=== PATIENT | male | born 1935 | race Caucasian/White ===

== ENCOUNTER 2016-02-17 00:16 | Emergency (ER) | payer OTHER ==
--- NOTE | 2016-02-17 06:01 | ED ORDER SUMMARY ---
..... Patient: BRIGID MICHAELS OrderSheet [facility] VisitID: [id number] [address] [place] [address] 81y, M Registration Date/Time: 02/17/2016 ORDER SHEET Weight: 88 kg (measured) Allergies: Penicillins, Sulfa Antibiotics GENERAL ORDERS: Culture, Stool Urgent (:02/17/2016 RCollier R.N. per protocol) (Ack 1:16 AMcQuoid ER Tech1) (1:16 AMcQuoid ER Tech1) Stool WBC Urgent (:02/17/2016 RCollier R.N. per protocol) (Ack 1:16 AMcQuoid ER Tech1) (1:16 AMcQuoid ER Tech1) Stool for C. Difficile Urgent (:02/17/2016 RCollier R.N. per protocol) (Ack 1:16 AMcQuoid ER Tech1) (1:16 AMcQuoid ER Tech1) CBC w Diff Urgent (:02/17/2016 Melvin Ngo) (Ack 1:25 AMcQuoid ER Tech1) (1:50 Jenniferna) CMP Urgent (:02/17/2016 Melvin Ngo) (Ack 1:25 AMcQuoid ER Tech1) (1:50 Marilynekimana) Amylase Urgent (:02/17/2016 Melvin Ngo) (Ack 1:25 AMcQuoid ER Tech1) (1:57 AMcQuoid ER Tech1) Lipase Urgent (:02/17/2016 Melvin Ngo) (Ack 1:25 AMcQuoid ER Tech1) (1:57 AMcQuoid ER Tech1) MEDICATION ORDERS: IV FLUIDS: IV NS : initial bolus none -, then 1000 mL/hr for X1 (NOW) (01:22 02/17/2016 Melvin Ngo) (1:30 RCollier R.N.) IV NS : initial bolus none -, then 1000 mL/hr for X1 (NOW) (04:20 02/17/2016 Melvin Ngo) (Ack 4:32 RCollier R.N.) (4:51 RCollier R.N.) ORDER SHEET NOTES: [Electronically signed by Babita Banuelos R.N. (06:02/17/2016)] [Electronically signed by Morales Kay Dr. (10:50 02/17/2016)] [Electronically locked/signed by Babita Banuelos R.N. (06:02/17/2016)]
--- NOTE | 2016-02-17 06:01 | ED CLINICAL REPORT ---
Clinical Report - Physicians/Mid Levels [facility] [address] [place] [address] 02/17/2016 0:16 Patient: BRIGID MICHAELS Time Seen: 00:48; initial patient contact. Arrived- By private vehicle. Historian- patient. HISTORY OF PRESENT ILLNESS Chief Complaint: DIARRHEA. This started about 5 days ago and is still present (persistent). No recent travel. No nausea, vomiting, black stools, bloody stools or abdominal pain. No constipation, flank pain, history of possible bad food exposure, known contact with a sick individual or change in routine. The patient has had diarrhea. Has not recently been camping or on antibiotics. The illness is described as moderate. Similar symptoms previously: None. Recent medical care: Not recently seen/assessed. REVIEW OF SYSTEMS No fever, muscle aches or difficulty with urination. All systems otherwise negative, except as recorded above. PAST HISTORY Fecal Impaction. Constipation. Diabetes Mellitus. Hypertension. Hypercholesterolemia. SURGERIES: Polyp removal from vocal cords. Medications: A statin. Asa 81 mg daily. Humalog before each meal. Lantis insulin 50-60units at hs sliding scale. Lisinopril Oral 20 mg, daily. Allergies: Penicillins. Sulfa Antibiotics. SOCIAL HISTORY Current every day smoker. No alcohol use or drug use. ADDITIONAL NOTES The nursing notes have been reviewed with agreement regarding the chief complaint, PMH and patient medications and allergies. PHYSICAL EXAM Vital Signs: 02/17/2016 00:20 BP: 130/57. HR: 115. RR: 16. O2 saturation: 99%. Temp: 98 F. Pain level now: 0/10. Have been reviewed. Hypotensive. Tachycardic. Respiratory rate normal. Temperature normal. Oxygen saturation normal. Appearance: Alert. Oriented X3. No acute distress. Eyes: Eyes normal inspection. No scleral icterus. ENT: Dry mucous membranes present. CVS: Tachycardia. Heart sounds normal. Rhythm normal. Respiratory: No respiratory distress. Breath sounds normal. Abdomen: Soft and nontender. Bowel sounds normal. No organomegaly. No mass. No distention. Skin: Skin warm and dry. Normal skin color. No rash. Extremities: No lower extremity edema. Neuro: Oriented X 3. No motor deficit. LABS, X-RAYS, AND EKG Laboratory Tests: CBC w Diff: (KIRA: 02/17/2016 01:36) ( [facility] 02/17/2016 03:32) Final results Test Result Flag Units (Reference) WHITE BLOOD COUNT 10.1 K/uL (4.5-11.5) RED BLOOD COUNT 3.88 L M/uL (4.50-5.90) HEMOGLOBIN 11.9 L gm/dL (13.5-17.5) HEMATOCRIT 35.9 L % (41.0-53.0) MEAN CELL VOLUME 92 fL (80-100) MEAN CORPUSCULAR HGB 31 pg (26-34) MEAN CORPUSCULAR HGB CONC 33 g/dL (31-37) RED CELL DISTRIBUTION WIDTH 15.3 H % (11.6-14.8) PLATELET COUNT 159 K/uL (150-400) POLY % 67 % (50-75) BAND % 0 % (0-8) LYMPH 15 L % (25-40) MONO 16 H % (3-14) EOSINOPHIL % 2 % (0-4) BASOPHIL % 0 % (0-2) METAMYELOCYTE % 0 % (0-1) MYELOCYTE 0 % (0-1) OTHER CELL TYPE 0 CMP: (KIRA: 02/17/2016 01:36) ( [facility] 02/17/2016 02:06) Final results Test Result Flag Units (Reference) GLUCOSE 261 H mg/dL (70-110) BUN 28 H mg/dL (7-18) CREATININE 1.6 H mg/dL (0.6-1.3) Estimated GFR 44.54 mL/min Estimated GFR- 53.98 mL/min Note: Persistent reduction over 3 months in eGFR<60 mL/min/1.73 m2 defines CKD. Patients with eGFR values>=60 mL/min/1.73 m2 may also have CKD if evidence ofpersistent proteinuria. Additional information may be foundat www.kidney.org. SODIUM 140 mmol/L (136-145) POTASSIUM 3.9 mmol/L (3.5-5.1) CHLORIDE 108 H mmol/L (98-107) CARBON DIOXIDE 21 mmol/L (21-32) CALCIUM 7.3 L mg/dL (8.5-10.1) TOTAL PROTEIN 5.9 L g/dL (6.4-8.2) ALBUMIN 2.8 L g/dL (3.3-5.0) BILIRUBIN, TOTAL 0.2 mg/dL (0.0-1.0) ALKALINE PHOSPHATASE 54 U/L (46-116) AST (SGOT) 13 L U/L (15-37) ALT (SGPT) 18 U/L (12-78) LIPASE 164 U/L (73-393) AMYLASE 44 U/L (25-115) Stool WBC: (KIRA: 02/17/2016 01:05) ( [facility] 02/17/2016 03:43) Final results Test Result Flag Units (Reference) CDT SOURCE STOOL C-DIFFICILE TOXIN A/B CDT RESULT:: NEGATIVE FECAL LEUKOCYTES DATE: 02/17/16 FECAL LEUKOCYTES: NONE SEEN . PROGRESS AND PROCEDURES Course of Care: 02/17/2016 05:54 BP: 110/60. HR: 108. Evaluation after repeat exam and IV fluids. Vital Signs: have been reviewed. Blood pressure normal. Tachycardic. Physical exam findings are improved. Symptoms much better. Disposition: Discharged home in good and improved condition. Condition: good. CLINICAL IMPRESSION Diarrhea Moderate dehydration INSTRUCTIONS Drink plenty of fluids. Your Current Medications: CONTINUE TAKING THE FOLLOWING MEDICATIONS: A statin*. Asa 81 mg daily*. Humalog before each meal*. Lantis insulin 50-60units at hs * : sliding scale. Lisinopril Oral : 20 mg daily. Follow-up: Follow up with your doctor in about two days. Call for an appointment. Blood pressure screening was not performed during this visit because the patient has an active diagnosis of hypertension. (Electronically signed by Morales Kay Dr. 02/17/2016 10:50) Addenda for BRIGID MICHAELS VisitID: [id number] Date: 02/17/2016 02/17/2016 6:30 Started bag #4 1000 mL IV Fluids IV NS (Saline); at 1000 mL/hr over 1 hour(s) via site #1 via IV pump. Allergies verified and confirmed 5 rights. IV patency established. IV site checked: no pain, redness, or swelling. IV flushed thoroughly pre- and post-medication administration. IV Fluids IV NS Discontinued: bag #4 completed. Total amount infused: 1000 mL. IV patency established. IV site checked: no pain, redness, or swelling. IV flushed thoroughly. (Electronically signed by Babita Banuelos R.N. - 02/17/2016 6:30)
--- NOTE | 2016-02-17 06:01 | ED NURSING NOTES ---
Clinical Report - Nurses [facility] [address] [place] [address] 02/17/2016 0:16 Patient: BRIGID MICHAELS TRIAGE Triage time 00:20. Chief Complaint: DIARRHEA and (weakness). Alert. No acute distress. --00:25 Babita Banuelos R.N. 00:20 02/17/16. BP: 130/57. HR: 115. RR: 16 (regular and unlabored). O2 saturation: 99% on room air. Temp: 98 F (oral). Pain level now: 0/10. --00: Babita Banuelos R.N. Weight: 88 kg measured. Height/Length: 68 inches Per Patient. BMI: 29.5. --00:22 Babita Banuelos R.N. Medications A statin. Asa 81 mg daily. Humalog before each meal. Lantis insulin 50-60units at hs sliding scale. Lisinopril Oral 20 mg, daily. --00: Babita Banuelos R.N. Allergies Penicillins. Sulfa Antibiotics. --00: Babita Banuelos R.N. History Primary physician (Meggan). Onset. (about 5 days ago). No nausea, vomiting or abdominal pain. 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 --00: Babita Banuelos R.N. PROBLEMS: Fecal Impaction. Constipation. Diabetes Mellitus. Hypertension. Hypercholesterolemia. --00: Babita Banuelos R.N. ADDITIONAL SURGERIES: Polyp removal from vocal cords. --00:21 Babita Banuelos R.N. PHYSICAL ASSESSMENT To room via stretcher. GENERAL / NEURO / PSYCH: Alert. Oriented X 4. Appears in no acute distress. HEENT: Mucous membranes are pink. RESPIRATORY: Respirations not labored. CVS: Capillary refill less than 2 seconds. SKIN: Skin is warm and dry. --00:25 Babita Banuelos R.N. NURSING PROGRESS NOTES Two patient identifiers checked. Call light placed in reach. Side rails up x 1. Bed placed in lowest position. Brakes of bed on. --00:26 Babita Banuelos R.N. Patient ready for evaluation- chart flagged. --00:26 Babita Banuelos R.N. 00:28 02/17/2016 Site #1 started prior to arrival by EMS via IV in the left antecubital space with an 20g angiocath, with aseptic technique and good blood return; one attempt (NS 1000ml bag #2 infusing upon arrival, approx 500ml infused at time of arrival. rate at approx 500ml/hr). --00: Babita Banuelos R.N. monitor tech, pulse oximeter and NIBP monitor placed on patient; monitor alarms on. --00:28 Babita Banuelos R.N. pt ambulates to restroom and back to bed with assistance from . --01:08 Babita Banuelos R.N. Patient ID band checked for patient name and birthdate: family confirmed. Stool specimen sent. Labeled in the presence of the patient (liquid, brown specimine sent.). --01:09 Babita Banuelos R.N. 01:15 02/17/16. BP: 92/49. HR: 118. RR: 16. O2 saturation: 100%. --01:17 Babita Banuelos R.N. 01:30 02/17/2016 Started bag #3 1000 mL IV Fluids IV NS (Saline); at 1000 mL/hr over 1 hour(s) via site #1 via IV pump. Allergies verified and confirmed 5 rights. IV patency established. IV site checked: no pain, redness, or swelling. IV flushed thoroughly pre- and post-medication administration. --01:30 Babita Banuelos R.N. ( Stop time for IV NS bag #2 (started SUPERVISOR CELL EFFICIENCY) is 0110). --01:31 Babita Banuelos R.N. Patient ID band checked for patient name and birthdate: patient confirmed. Blood samples drawn from the right antecubital space with 23g butterfly by tech per protocol ; labeled in presence of the patient and sent to lab: osiel set. --01:55 Grecia Molina 03:40 02/17/16. BP: 96/45. HR: 117. RR: 16. O2 saturation: 98% on room air. --03:41 Babita Banuelos R.N. 02:34 02/17/2016 IV Fluids IV NS Discontinued: bag #3. Total amount infused: 1000 mL. IV patency established. IV site checked: no pain, redness, or swelling. IV flushed thoroughly. --04:34 Babita Banuelos R.N. 04:35- pt ambulates to restroom. --04:35 Babita Banuelos R.N. 04:50 02/17/2016 Started bag #4 1000 mL IV Fluids IV NS (Saline); at 1000 mL/hr over 1 hour(s) via site #1 via IV pump. Allergies verified and confirmed 5 rights. IV patency established. IV site checked: no pain, redness, or swelling. IV flushed thoroughly pre- and post-medication administration. --04:51 Babita Banuelos R.N. 04:51 02/17/16. BP: 87/46. HR: 112. RR: 15. O2 saturation: 98% on room air. Pain level now: 0/10. --04:52 Babita Banuelos R.N. DISPOSITION / DISCHARGE Condition at departure: improved and stable. No learning barriers present. Discharge instructions provided and reviewed with the patient and spouse. Patient and spouse verbalized understanding. Written instructions provided in Indonesian. The patient was discharged home and accompanied by spouse. He left the Emergency Department ambulatory and via private vehicle. Spouse driving. --06:20 Babita Banuelos R.N. 06:19 02/17/16. BP: 100/60. HR: 100. RR: 15. O2 saturation: 99% on room air. Temp: deferred. Pain level now: 0/10. --06:20 Babita Banuelos R.N. 06:20 02/17/2016 Site #1 removed upon discharge. Catheter intact. Manual pressure and bandage applied. --06:20 Babita Banuelos R.N. Locked/Released at 02/17/2016 6:21 by Babita Banuelos R.N.
--- NOTE | 2016-02-17 06:01 | ED NURSING NOTES ---
Clinical Report - Nurses [facility] [address] [place] [address] 02/17/2016 0:16 Patient: BRIGID MICHAELS TRIAGE Triage time 00:20. Chief Complaint: DIARRHEA and (weakness). Alert. No acute distress. --00:25 Babita Banuelos R.N. 00:20 02/17/16. BP: 130/57. HR: 115. RR: 16 (regular and unlabored). O2 saturation: 99% on room air. Temp: 98 F (oral). Pain level now: 0/10. --00: Babita Banuelos R.N. Weight: 88 kg measured. Height/Length: 68 inches Per Patient. BMI: 29.5. --00:22 Babita Banuelos R.N. Medications A statin. Asa 81 mg daily. Humalog before each meal. Lantis insulin 50-60units at hs sliding scale. Lisinopril Oral 20 mg, daily. --00: Babita Banuelos R.N. Allergies Penicillins. Sulfa Antibiotics. --00: Babita Banuelos R.N. History Primary physician (Meggan). Onset. (about 5 days ago). No nausea, vomiting or abdominal pain. 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 --00: Babiat Banuelos R.N. PROBLEMS: Fecal Impaction. Constipation. Diabetes Mellitus. Hypertension. Hypercholesterolemia. --00: Babita Banuelos R.N. ADDITIONAL SURGERIES: Polyp removal from vocal cords. --00:21 Babita Banuelos R.N. PHYSICAL ASSESSMENT To room via stretcher. GENERAL / NEURO / PSYCH: Alert. Oriented X 4. Appears in no acute distress. HEENT: Mucous membranes are pink. RESPIRATORY: Respirations not labored. CVS: Capillary refill less than 2 seconds. SKIN: Skin is warm and dry. --00:25 Babita Banuelos R.N. NURSING PROGRESS NOTES Two patient identifiers checked. Call light placed in reach. Side rails up x 1. Bed placed in lowest position. Brakes of bed on. --00:26 Babita Banuelos R.N. Patient ready for evaluation- chart flagged. --00:26 Babita Banuelos R.N. 00:28 02/17/2016 Site #1 started prior to arrival by EMS via IV in the left antecubital space with an 20g angiocath, with aseptic technique and good blood return; one attempt (NS 1000ml bag #2 infusing upon arrival, approx 500ml infused at time of arrival. rate at approx 500ml/hr). --00: Babita Banuelos R.N. fire suppression captain, pulse oximeter and NIBP monitor placed on patient; monitor alarms on. --00:28 Babita Banuelos R.N. pt ambulates to restroom and back to bed with assistance from . --01:08 Babita Banuelos R.N. Patient ID band checked for patient name and birthdate: family confirmed. Stool specimen sent. Labeled in the presence of the patient (liquid, brown specimine sent.). --01:09 Babita Banuelos R.N. 01:15 02/17/16. BP: 92/49. HR: 118. RR: 16. O2 saturation: 100%. --01:17 Babita Banuelos R.N. 01:30 02/17/2016 Started bag #3 1000 mL IV Fluids IV NS (Saline); at 1000 mL/hr over 1 hour(s) via site #1 via IV pump. Allergies verified and confirmed 5 rights. IV patency established. IV site checked: no pain, redness, or swelling. IV flushed thoroughly pre- and post-medication administration. --01:30 Babita Banuelos R.N. 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 --01:31 Babita Banuelos R.N. Patient ID band checked for patient name and birthdate: patient confirmed. Blood samples drawn from the right antecubital space with 23g butterfly by tech per protocol ; labeled in presence of the patient and sent to lab: osiel set. --01:55 Grecia Molina 03:40 02/17/16. BP: 96/45. HR: 117. RR: 16. O2 saturation: 98% on room air. --03:41 Babita Banuelos R.N. 02:34 02/17/2016 IV Fluids IV NS Discontinued: bag #3. Total amount infused: 1000 mL. IV patency established. IV site checked: no pain, redness, or swelling. IV flushed thoroughly. --04:34 Babita Banuelos R.N. 04:35- pt ambulates to restroom. --04:35 Babita Banuelos R.N. 04:50 02/17/2016 Started bag #4 1000 mL IV Fluids IV NS (Saline); at 1000 mL/hr over 1 hour(s) via site #1 via IV pump. Allergies verified and confirmed 5 rights. IV patency established. IV site checked: no pain, redness, or swelling. IV flushed thoroughly pre- and post-medication administration. --04:51 Babita Banuelos R.N. 04:51 02/17/16. BP: 87/46. HR: 112. RR: 15. O2 saturation: 98% on room air. Pain level now: 0/10. --04:52 Babita Banuelos R.N. DISPOSITION / DISCHARGE Condition at departure: improved and stable. No learning barriers present. Discharge instructions provided and reviewed with the patient and spouse. Patient and spouse verbalized understanding. Written instructions provided in Lithuanian. The patient was discharged home and accompanied by spouse. He left the Emergency Department ambulatory and via private vehicle. Spouse driving. --06:20 Babita Banuelos R.N. 06:19 02/17/16. BP: 100/60. HR: 100. RR: 15. O2 saturation: 99% on room air. Temp: deferred. Pain level now: 0/10. --06:20 Babita Banuelos R.N. 06:20 02/17/2016 Site #1 removed upon discharge. Catheter intact. Manual pressure and bandage applied. --06:20 Babita Banuelos R.N. Locked/Released at 02/17/2016 6:21 by Babita Banuelos R.N.
--- NOTE | 2016-02-17 06:01 | ED ORDER SUMMARY ---
..... Patient: BRIGID MICHAELS OrderSheet [facility] VisitID: [id number] [address] [place] [address] 81y, M Registration Date/Time: 02/17/2016 ORDER SHEET Weight: 88 kg (measured) Allergies: Penicillins, Sulfa Antibiotics GENERAL ORDERS: Culture, Stool Urgent (:02/17/2016 RCollier R.N. per protocol) (Ack 1:16 AMcQuoid ER Tech1) (1:16 AMcQuoid ER Tech1) Stool WBC Urgent (:02/17/2016 RCollier R.N. per protocol) (Ack 1:16 AMcQuoid ER Tech1) (1:16 AMcQuoid ER Tech1) Stool for C. Difficile Urgent (:02/17/2016 RCollier R.N. per protocol) (Ack 1:16 AMcQuoid ER Tech1) (1:16 AMcQuoid ER Tech1) CBC w Diff Urgent (:02/17/2016 Melvin Ngo) (Ack 1:25 AMcQuoid ER Tech1) (1:50 Jenniferna) CMP Urgent (:02/17/2016 Melvin Ngo) (Ack 1:25 AMcQuoid ER Tech1) (1:50 Marilynekimana) Amylase Urgent (:02/17/2016 Melvin Ngo) (Ack 1:25 AMcQuoid ER Tech1) (1:57 AMcQuoid ER Tech1) Lipase Urgent (:02/17/2016 Melvin Ngo) (Ack 1:25 AMcQuoid ER Tech1) (1:57 AMcQuoid ER Tech1) MEDICATION ORDERS: IV FLUIDS: IV NS : initial bolus none -, then 1000 mL/hr for X1 (NOW) (01:22 02/17/2016 Melvin Ngo) (1:30 RCollier R.N.) IV NS : initial bolus none -, then 1000 mL/hr for X1 (NOW) (04:20 02/17/2016 Melvin Ngo) (Ack 4:32 RCollier R.N.) (4:51 RCollier R.N.) ORDER SHEET NOTES: [Electronically signed by Babita Banuelos R.N. (06:02/17/2016)] [Electronically signed by Morales Kay Dr. (10:50 02/17/2016)] [Electronically locked/signed by Babita Banuelos R.N. (06:02/17/2016)]
--- NOTE | 2016-02-17 06:01 | ED CLINICAL REPORT ---
Clinical Report - Physicians/Mid Levels [facility] [address] [address] 02/17/2016 0:16 Patient: BRIGID MICHAELS Time Seen: 00:48; initial patient contact. Arrived- By private vehicle. Historian- patient. HISTORY OF PRESENT ILLNESS Chief Complaint: DIARRHEA. This started about 5 days ago and is still present (persistent). No recent travel. No nausea, vomiting, black stools, bloody stools or abdominal pain. No constipation, flank pain, history of possible bad food exposure, known contact with a sick individual or change in routine. The patient has had diarrhea. Has not recently been camping or on antibiotics. The illness is described as moderate. Similar symptoms previously: None. Recent medical care: Not recently seen/assessed. REVIEW OF SYSTEMS No fever, muscle aches or difficulty with urination. All systems otherwise negative, except as recorded above. PAST HISTORY Fecal Impaction. Constipation. Diabetes Mellitus. Hypertension. Hypercholesterolemia. SURGERIES: Polyp removal from vocal cords. Medications: A statin. Asa 81 mg daily. Humalog before each meal. Lantis insulin 50-60units at hs sliding scale. Lisinopril Oral 20 mg, daily. Allergies: Penicillins. Sulfa Antibiotics. SOCIAL HISTORY Current every day smoker. No alcohol use or drug use. ADDITIONAL NOTES The nursing notes have been reviewed with agreement regarding the chief complaint, PMH and patient medications and allergies. PHYSICAL EXAM Vital Signs: 02/17/2016 00:20 BP: 130/57. HR: 115. RR: 16. O2 saturation: 99%. Temp: 98 F. Pain level now: 0/10. Have been reviewed. Hypotensive. Tachycardic. Respiratory rate normal. Temperature normal. Oxygen saturation normal. Appearance: Alert. Oriented X3. No acute distress. Eyes: Eyes normal inspection. No scleral icterus. ENT: Dry mucous membranes present. CVS: Tachycardia. Heart sounds normal. Rhythm normal. Respiratory: No respiratory distress. Breath sounds normal. Abdomen: Soft and nontender. Bowel sounds normal. No organomegaly. No mass. No distention. Skin: Skin warm and dry. Normal skin color. No rash. Extremities: No lower extremity edema. Neuro: Oriented X 3. No motor deficit. LABS, X-RAYS, AND EKG Laboratory Tests: CBC w Diff: (KIRA: 02/17/2016 01:36) ( [facility] 02/17/2016 03:32) Final results Test Result Flag Units (Reference) WHITE BLOOD COUNT 10.1 K/uL (4.5-11.5) RED BLOOD COUNT 3.88 L M/uL (4.50-5.90) HEMOGLOBIN 11.9 L gm/dL (13.5-17.5) HEMATOCRIT 35.9 L % (41.0-53.0) MEAN CELL VOLUME 92 fL (80-100) MEAN CORPUSCULAR HGB 31 pg (26-34) MEAN CORPUSCULAR HGB CONC 33 g/dL (31-37) RED CELL DISTRIBUTION WIDTH 15.3 H % (11.6-14.8) PLATELET COUNT 159 K/uL (150-400) POLY % 67 % (50-75) BAND % 0 % (0-8) LYMPH 15 L % (25-40) MONO 16 H % (3-14) EOSINOPHIL % 2 % (0-4) BASOPHIL % 0 % (0-2) METAMYELOCYTE % 0 % (0-1) MYELOCYTE 0 % (0-1) OTHER CELL TYPE 0 CMP: (KIRA: 02/17/2016 01:36) ( [facility] [place] 02/17/[place] 02:06) Final results Test Result Flag Units (Reference) GLUCOSE 261 H mg/dL (70-110) BUN 28 H mg/dL (7-18) CREATININE 1.6 H mg/dL (0.6-1.3) Estimated GFR 44.54 mL/min Estimated GFR- 53.98 mL/min Note: Persistent reduction over 3 months in eGFR<60 mL/min/1.73 m2 defines CKD. Patients with eGFR values>=60 mL/min/1.73 m2 may also have CKD if evidence ofpersistent proteinuria. Additional information may be foundat www.kidney.org. SODIUM 140 mmol/L (136-145) POTASSIUM 3.9 mmol/L (3.5-5.1) CHLORIDE 108 H mmol/L (98-107) CARBON DIOXIDE 21 mmol/L (21-32) CALCIUM 7.3 L mg/dL (8.5-10.1) TOTAL PROTEIN 5.9 L g/dL (6.4-8.2) ALBUMIN 2.8 L g/dL (3.3-5.0) BILIRUBIN, TOTAL 0.2 mg/dL (0.0-1.0) ALKALINE PHOSPHATASE 54 U/L (46-116) AST (SGOT) 13 L U/L (15-37) ALT (SGPT) 18 U/L (12-78) LIPASE 164 U/L (73-393) AMYLASE 44 U/L (25-115) Stool WBC: (KIRA: 02/17/2016 01:05) ( MsgRcvd 02/17/2016 03:43) Final results Test Result Flag Units (Reference) CDT SOURCE STOOL C-DIFFICILE TOXIN A/B CDT RESULT:: NEGATIVE FECAL LEUKOCYTES DATE: 02/17/16 FECAL LEUKOCYTES: NONE SEEN . PROGRESS AND PROCEDURES Course of Care: 02/17/2016 05:54 BP: 110/60. HR: 108. Evaluation after repeat exam and IV fluids. Vital Signs: have been reviewed. Blood pressure normal. Tachycardic. Physical exam findings are improved. Symptoms much better. Disposition: Discharged home in good and improved condition. Condition: good. CLINICAL IMPRESSION Diarrhea Moderate dehydration INSTRUCTIONS Drink plenty of fluids. Your Current Medications: CONTINUE TAKING THE FOLLOWING MEDICATIONS: A statin*. Asa 81 mg daily*. Humalog before each meal*. Lantis insulin 50-60units at hs * : sliding scale. Lisinopril Oral : 20 mg daily. Follow-up: Follow up with your doctor in about two days. Call for an appointment. Blood pressure screening was not performed during this visit because the patient has an active diagnosis of hypertension. (Electronically signed by Morales Kay Dr. 02/17/2016 10:50) Addenda for BRIGID MICHAELS VisitID: [id number] Date: 02/17/2016 02/17/2016 6:30 Started bag #4 1000 mL IV Fluids IV NS (Saline); at 1000 mL/hr over 1 hour(s) via site #1 via IV pump. Allergies verified and confirmed 5 rights. IV patency established. IV site checked: no pain, redness, or swelling. IV flushed thoroughly pre- and post-medication administration. IV Fluids IV NS Discontinued: bag #4 completed. Total amount infused: 1000 mL. IV patency established. IV site checked: no pain, redness, or swelling. IV flushed thoroughly. (Electronically signed by Babita Banuelos R.N. - 02/17/2016 6:30)
--- NOTE | 2016-02-17 10:50 | ED MED RECONCILIATION SUMMARY ---
Patient: BRIGID MICHAELS Medication Reconciliation Report [facility] VisitID: [id number] [address] [place] [address] 81y, M Registration Date/Time: 02/17/2016 Weight: 88 kg Height/Length: 68 in. BMI: 29.5 ALLERGIES: Penicillins, Sulfa Antibiotics The patient's Home Medications are listed below: CONTINUE TAKING THE FOLLOWING MEDICATIONS: A statin Asa 81 mg daily Humalog before each meal Lantis insulin 50-60units at hs sliding scale Lisinopril Oral 20 mg, daily The source(s) of the original Home Medication information: Not obtained. The following Medications were given to the patient in the Emergency Department: IV NS IV Fluids bolus 0, then 1000 mL/hr, administered: 02/17/2016 1:30:00 AM IV NS IV Fluids bolus 0, then 1000 mL/hr, administered: 02/17/2016 4:50:00 AM The following Medications were prescribed to the patient: None.
--- NOTE | 2016-02-17 10:50 | ED MAR SUMMARY ---
..... Medication Administration Record [facility] [address] [place] [address] Patient: BRIGID MICHAELS Visit ID: [id number] 81y, M Weight: 88.0 kg Height/Length: 68 in BMI: 29.5 ALLERGIES: Penicillins, Sulfa Antibiotics Start 01:30 02/17/2016 Babita Banuelos RCharity, Stop 02:34 02/17/2016 Babita Banuelos R.N. Medication Administered: IV NS (SALINE), Dose: IV Fluids over 1 hour(s), Rate: 1000 mL/hr, Dispensed: 1000 mL bag, Site: #1 left AC. Medication Ordered: IV NS : initial bolus none -, then 1000 mL/hr for X1 (NOW). Start 04:50 02/17/2016 Babita Banuelos R.N., Stop 05:50 02/17/2016 Babita Banuelos RCatalinaN. Medication Administered: IV NS (SALINE), Dose: IV Fluids over 1 hour(s), Rate: 1000 mL/hr, Dispensed: 1000 mL bag, Site: #1 left AC. Medication Ordered: IV NS : initial bolus none -, then 1000 mL/hr for X1 (NOW).
--- NOTE | 2016-02-17 10:50 | ED MAR SUMMARY ---
..... Medication Administration Record [facility] [address] [place] [address] Patient: BRIGID MICHAELS Visit ID: [id number] 81y, M Weight: 88.0 kg Height/Length: 68 in BMI: 29.5 ALLERGIES: Penicillins, Sulfa Antibiotics Start 01:30 02/17/2016 Babita Banuelos RCharity, Stop 02:34 02/17/2016 Babita Banuelos R.N. Medication Administered: IV NS (SALINE), Dose: IV Fluids over 1 hour(s), Rate: 1000 mL/hr, Dispensed: 1000 mL bag, Site: #1 left AC. Medication Ordered: IV NS : initial bolus none -, then 1000 mL/hr for X1 (NOW). Start 04:50 02/17/2016 Bbaita Banuelos R.N., Stop 05:50 02/17/2016 Babita Banuelos RCatalinaN. Medication Administered: IV NS (SALINE), Dose: IV Fluids over 1 hour(s), Rate: 1000 mL/hr, Dispensed: 1000 mL bag, Site: #1 left AC. Medication Ordered: IV NS : initial bolus none -, then 1000 mL/hr for X1 (NOW).
--- NOTE | 2016-02-17 10:50 | ED DISCHARGE INSTRUCTIONS ---
Patient: BRIGID MICHAELS General Instructions [facility] VisitID: [id number] [place] [address] 81y, M Registration Date/Time: 02/17/2016 Diarrhea Moderate dehydration INSTRUCTIONS Drink plenty of fluids. Your Current Medications: CONTINUE TAKING THE FOLLOWING MEDICATIONS: A statin*. Asa 81 mg daily*. Humalog before each meal*. Lantis insulin 50-60units at hs * : sliding scale. Lisinopril Oral : 20 mg daily. Follow-up: Follow up with your doctor in about two days. Call for an appointment. Blood pressure screening was not performed during this visit because the patient has an active diagnosis of hypertension. ADDITIONAL INFORMATION Diarrhea, Uncertain Cause (Adult, Report Pending) Diarrhea has several possible causes. Commonstomach fluis caused by a virus. Food poisoning, bacteria or parasites are other causes for diarrhea. Only diarrhea caused by bacteria or parasites requires treatment with an antibiotic. Diarrhea from a virus or food poisoning improves with simple home treatment. A stool sample is needed to make the diagnosis of an infection with bacteria or parasites. Up to three stool specimens may be required to diagnose This may take up to two days to get the result. It may be necessary to wait until the stool test is complete to make the diagnosis and select the best antibiotic to prescribe. Home Care: If symptoms are severe, rest at home for the next 24 hours or until you are feeling better. You may use acetaminophen (Tylenol) or ibuprofen (Motrin, Advil) to control fever, unless another medicine was prescribed. [NOTE: If you have chronic liver or kidney disease or ever had a stomach ulcer or GI bleeding, talk with your doctor before using these medicines.] (Aspirin should never be used in anyone under 18 years of age who is ill with a fever. It may cause severe liver damage.) Avoid tobacco, caffeine and alcohol, which may worsen your symptoms. If anti-diarrhea medicine was prescribed, take this only as directed. Sometimes anti-diarrhea medicine can make your condition worse if the cause is an infectious diarrhea. Therefore, anti-diarrhea medicine should not be taken for this condition unless advised by your doctor. During The First 12-24 Hours follow the diet below: BEVERAGES: Sport drinks like Gatorade, soft drinks without caffeine; royer elvin, mineral water (plain or flavored), decaffeinated tea and coffee. SOUPS: Clear broth, consomm and bouillon DESSERTS: Plain gelatin (Jell-O), popsicles and fruit juice bars. During The Next 24 Hours you may add the following to the above: Hot cereal, plain toast, bread, rolls, crackers Plain noodles, rice, mashed potatoes, chicken noodle or rice soup Unsweetened canned fruit (avoid pineapple), bananas Limit fat intake to less than 15 grams per day by avoiding margarine, butter, oils, mayonnaise, sauces, gravies, fried foods, peanut butter, meat, poultry and fish. Limit fiber; avoid raw or cooked vegetables, fresh fruits (except bananas) and bran cereals. Limit caffeine and chocolate. No spices or seasonings except salt. During The Next 24 Hours Gradually resume a normal diet, as you feel better and your symptoms lessen. Follow Up with your doctor or as advised if you are not improving over the next two days. If you were asked to bring a specimen from home, bring the sample on the day of collection. You may call in 2 days (or as directed) for the results. Get Prompt Medical Attention if any of the following occur: Increasing abdominal pain or constant lower right abdominal pain Continued vomiting (unable to keep liquids down) Frequent diarrhea (more than 5 times a day) Blood in vomit or stool (black or red color) Reduced oral intake Dark urine, reduced urine output Weakness, dizziness, fainting Drowsiness, confusion, stiff neck or seizure Fever of 100.4F (38C) oral or higher, not better with fever medication New rash Dehydration (Adult) Dehydration occurs when your body loses too much fluid. This may be the result of vomiting a lot or from diarrhea,sweating a lot, or a high fever. It may also happen if you dont drink enough fluid when youre sick. Misuse of diuretics (water pills) can also be a cause. Symptoms include thirst and feeling dizzy, weak, fatigued, or very drowsy. The diet described below is usually enough to treat most cases. Sometimes you may needmedicine. Home Care Follow these guidelines for home care: Drink at least 12 8-ounce glasses of fluid every day to overcome the dehydration. Fluid may include water; orange juice; lemonade; apple, grape, and cranberry juice; clear fruit drinks; electrolyte replacement and sports drinks; and teas and coffee without caffeine. If you have been diagnosed with a kidney disease, ask your doctor how much and what types of fluids you should drink to prevent dehydration. If you have kidney disease, drinking too much fluid can cause it build up in the your body and be dangerous to your health. If you have fever, muscle aching, or headache from a viral syndrome, you may useacetaminophen or ibuprofen, unless another medicine was prescribed for this.If you have chronic liver or kidney disease or ever had a stomach ulcer or GI bleeding, talk with your doctor before using these medicines. Don't take aspirin if you are younger than 18 and are ill with a fever.Aspirin raises the chance forsevere liver injury. Follow-up care Follow up with your health care provider if you don't get better in the next 24 to 48 hours. When to seek medical care Get prompt medical attention if any of theseoccur: Continued vomiting (cant keep liquids down) Frequent diarrhea (more than 5 times a day); blood (red or black color) or mucus in diarrhea Blood in vomit or stool Swollen abdomen or increasing abdominal pain Weakness, dizziness, or fainting Unusually drowsy or confused Reduced urine output or extreme thirst Fever of 100.4 F (38 C) oral or higher that does not get better with fever medication You have been given the following additional information: Diarrhea, Unk Cause (Adult) Report Pendg Dehydration (Adult) (Electronically signed by Morales Kay Dr. 02/17/2016 10:50)
--- NOTE | 2016-02-17 10:50 | ED MED RECONCILIATION SUMMARY ---
Patient: BRIGID MICHAELS Medication Reconciliation Report [facility] VisitID: [id number] [address] [place] [address] 81y, M Registration Date/Time: 02/17/2016 Weight: 88 kg Height/Length: 68 in. BMI: 29.5 ALLERGIES: Penicillins, Sulfa Antibiotics The patient's Home Medications are listed below: CONTINUE TAKING THE FOLLOWING MEDICATIONS: A statin Asa 81 mg daily Humalog before each meal Lantis insulin 50-60units at hs sliding scale Lisinopril Oral 20 mg, daily The source(s) of the original Home Medication information: Not obtained. The following Medications were given to the patient in the Emergency Department: IV NS IV Fluids bolus 0, then 1000 mL/hr, administered: 02/17/2016 1:30:00 AM IV NS IV Fluids bolus 0, then 1000 mL/hr, administered: 02/17/2016 4:50:00 AM The following Medications were prescribed to the patient: None.
== END 2016-02-17 06:18 | disposition home or self-care (01) ==
LOC: ED SRH 00:16
DX: R19.7 Diarrhea, unspecified (principal); E86.0 Dehydration; I10 Essential (primary) hypertension; E11.9 Type 2 diabetes mellitus without complications; Z88.0 Allergy status to penicillin; Z88.2 Allergy status to sulfonamides; Z79.4 Long term (current) use of insulin; F17.210 Nicotine dependence, cigarettes, uncomplicated
CPT/HCPCS: 90100; 90112; 90455; 91643; 92235; 92530; 95059; 99262

== ENCOUNTER 2016-04-04 22:51 | Inpatient (IN) | payer OTHER ==
[~2016-04-04] VITALS: Ht 175.3 cm; Wt 85.4 kg
--- NOTE | 2016-04-05 01:14 | ED CLINICAL REPORT ---
Clinical Report - Physicians/Mid Levels [facility] [address] [place] [address] 04/04/2016 22:52 Patient: BRIGID MICHAELS Time Seen: 00:14. Arrived- By private vehicle. Historian- patient. HISTORY OF PRESENT ILLNESS Chief Complaint: COUGH. This started about 5 days ago and is still present. It was gradual in onset and has been constant. The illness is described as severe. The patient has had thick, yellow sputum, a cough, difficulty breathing on exertion, sinus pressure and chills. No chest discomfort or pain. He has had low grade fever (101.6 F). Additional history - The patient has had contact with a sick spouse. They have had similar symptoms. REVIEW OF SYSTEMS The patient has had fever and chills and experienced sweats. No calf pain, chest pain, pedal edema, palpitations or abdominal pain. No black stools, bloody stools, constipation, diarrhea or nausea. No vomiting or urinary problems. All systems otherwise negative, except as recorded above. PAST HISTORY Dr. Mclaughlin. Problems: Sick Contact. Dehydration. Diarrhea. Fecal Impaction. Constipation. Diabetes Mellitus. Hypertension. Hypercholesterolemia. Additional Surgeries: Polyp removal from vocal cords. Medications: A statin. Asa 81 mg daily. Humalog before each meal. Lantis insulin 50-60units at hs sliding scale. Lisinopril Oral 20 mg, daily. Allergies: Penicillins. Sulfa Antibiotics. SOCIAL HISTORY Current every day heavy tobacco smoker (cigarette)- less than 1 pack per day. Alcohol use. Patient is a recovering alcoholic. No drug use. Is a local resident. He lives with spouse. Has good social support. FAMILY HISTORY Diabetes in first-degree relative (mother); cancer in first-degree relative (mother and father). ADDITIONAL NOTES The nursing notes have been reviewed. PHYSICAL EXAM Vital Signs: 04/04/2016 23:03 BP: 130/52. HR: 135. RR: 26. O2 saturation: 98%. Temp: 98.9 F. Pain level now: 0/10. Have been reviewed. Appearance: Alert. Eyes: Pupils equal, round and reactive to light. ENT: Pharynx normal. Neck: Normal inspection. Neck supple. CVS: Normal heart rate and rhythm. Heart sounds normal. Respiratory: No respiratory distress. Rhonchi present in the right lung base. Abdomen: Soft and nontender. No organomegaly. Back: Normal inspection. No CVA tenderness. Skin: Skin warm and dry. Normal skin color. No rash. Normal skin turgor. Extremities: Extremities exhibit normal ROM. No calf tenderness. No lower extremity edema. LABS, X-RAYS, AND EKG EKG: Rate: 128. Junctional rhythm present (acceleratedwith retrograde conduction). Q waves in lead V1. Left axis deviation. Prior EKG unavailable. The study has been independently viewed by me. Chest X-ray: Infiltrate in the right lower lobe. The X-rays were independently viewed by me. Laboratory Tests: CBC w Manual Diff: (KIRA: 04/05/2016 18:37) ( [facility] 04/05[facility] 19:28) Final results Test Result Flag Units (Reference) WHITE BLOOD COUNT NO REFLEX 20.2 H K/uL (4.5-11.5) RED BLOOD COUNT 3.29 L M/uL (4.50-5.90) HEMOGLOBIN 10.2 L gm/dL (13.5-17.5) HEMATOCRIT 30.8 L % (41.0-53.0) MEAN CELL VOLUME 94 fL (80-100) MEAN CORPUSCULAR HGB 31 pg (26-34) MEAN CORPUSCULAR HGB CONC 33 g/dL (31-37) RED CELL DISTRIBUTION WIDTH 16.0 H % (11.6-14.8) PLATELET COUNT 134 L K/uL (150-400) POLY % 66 % (50-75) BAND % 13 H % (0-8) LYMPH 3 L % (25-40) MONO 18 H % (3-14) EOSINOPHIL % 0 % (0-4) BASOPHIL % 0 % (0-2) METAMYELOCYTE % 0 % (0-1) MYELOCYTE 0 % (0-1) OTHER CELL TYPE 0 OVALOCYTES 1+ JAC CELLS 1+ [id number]: (KIRA: 04/05/2016 18:37) ( [facility] 04/05/2016 19:40) Final results Test Result Flag Units (Reference) PROCALCITONIN <0.5 ng/mL (0-0.5) PCT Concentration: Interpretation : Risk/option for action PCT <=0.5 ng/mL : Systemic : Low risk forinfection(sepsis): progression to severeis not likely. : systemic infection.Local bacterial : CAUTION-PCT levelsinfection is : below 0.5 ng/mL do notpossible. : exclude an infection,because localizedinfections (withoutsystemic signs) may beassociated with suchlow levels. If PCT ismeasured very earlyafter a bacterialchallenge (usually <6hours), these valuesmay still be low. Inthis case PCT shouldbe re-assessed 6-24hours later. PCT >0.5 and : Systemic infection: Moderate risk for<= 2 ng/mL : (sepsis) is : progression to severepossible, but : systemic infection.other conditions : The patient should beare known to : closely monitoredelevate PCT. : both clinically andby re-assessing PCTwithin 6-24 hours. PCT > 2 ng/mL : Systemic infection: High risk for(sepsis) is likely: progression to severeunless other : systemic infection.causes are known. : PCT >= 10 ng/mL : Important systemic: High likelihood ofinflammatory : severe sepsis orresponse, almost : septic shock.exclusively due to:severe bacterial :sepsis or septic :shock. : [id number]: (KIRA: 04/05/2016 00:01) ( [facility] 04/05/2016 01:13) Final results Test Result Flag Units (Reference) LACTIC ACID SEPSIS PROTOCOL 1.2 mmol/L (0.4-2.0) BNP: (KIRA: 04/05/2016 00:01) ( [facility] 04/05/2016 00:57) Final results Test Result Flag Units (Reference) B-TYPE NATRIURETIC PEPTIDE 105 H pg/ml (5-100) CPK: (KIRA: 04/05/2016 00:01) ( [facility] 04/05/2016 00:51) Final results Test Result Flag Units (Reference) CPK 148 U/L (24-260) TROPONIN I <0.05 ng/mL (0.00-1.5) TROPONIN REFERENCE RANGE:<0.1 NEGATIVE0.1-1.5 INDETERMINANT>1.5 POSITIVE [id number]: (KIRA: 04/05/2016 00:00) ( [facility] 04/05/2016 01:26) Final results Test Result Flag Units (Reference) PROCALCITONIN <0.5 ng/mL (0-0.5) PCT Concentration: Interpretation : Risk/option for action PCT <=0.5 ng/mL : Systemic : Low risk forinfection(sepsis): progression to severeis not likely. : systemic infection.Local bacterial : CAUTION-PCT levelsinfection is : below 0.5 ng/mL do notpossible. : exclude an infection,because localizedinfections (withoutsystemic signs) may beassociated with suchlow levels. If PCT ismeasured very earlyafter a bacterialchallenge (usually <6hours), these valuesmay still be low. Inthis case PCT shouldbe re-assessed 6-24hours later. PCT >0.5 and : Systemic infection: Moderate risk for<= 2 ng/mL : (sepsis) is : progression to severepossible, but : systemic infection.other conditions : The patient should beare known to : closely monitoredelevate PCT. : both clinically andby re-assessing PCTwithin 6-24 hours. PCT > 2 ng/mL : Systemic infection: High risk for(sepsis) is likely: progression to severeunless other : systemic infection.causes are known. : PCT >= 10 ng/mL : Important systemic: High likelihood ofinflammatory : severe sepsis orresponse, almost : septic shock.exclusively due to:severe bacterial :sepsis or septic :shock. : CBC w Diff: (KIRA: 04/04/2016 00:00) ( MsgRcvd 04/05/2016 00:14) IP Test Result Flag Units (Reference) WHITE BLOOD COUNT 25.3 *H K/uL (4.5-11.5) CRITICAL RESULTS CALLEDCalled to KAVIN 04/05/16 0013Were 2 patient identifiers used? YWas the result read back? Y RED BLOOD COUNT 4.03 L M/uL (4.50-5.90) HEMOGLOBIN 12.1 L gm/dL (13.5-17.5) HEMATOCRIT 37.1 L % (41.0-53.0) MEAN CELL VOLUME 92 fL (80-100) MEAN CORPUSCULAR HGB 30 pg (26-34) MEAN CORPUSCULAR HGB CONC 33 g/dL (31-37) RED CELL DISTRIBUTION WIDTH 15.2 H % (11.6-14.8) PLATELET COUNT 153 K/uL (150-400) LYMPH % 10.3 L % (25-40) MONO % 4.4 % (3-14) GRANULOCYTE % 85.3 CMP: (KIRA: 04/04/2016 00:00) ( MsgRcvd 04/05/2016 00:23) Final results Test Result Flag Units (Reference) GLUCOSE 180 H mg/dL (70-110) BUN 31 H mg/dL (7-18) CREATININE 1.7 H mg/dL (0.6-1.3) Estimated GFR 41.53 mL/min Estimated GFR- 50.33 mL/min Note: Persistent reduction over 3 months in eGFR<60 mL/min/1.73 m2 defines CKD. Patients with eGFR values>=60 mL/min/1.73 m2 may also have CKD if evidence ofpersistent proteinuria. Additional information may be foundat www.kidney.org. SODIUM 137 mmol/L (136-145) POTASSIUM 4.5 mmol/L (3.5-5.1) CHLORIDE 102 mmol/L (98-107) CARBON DIOXIDE 23 mmol/L (21-32) CALCIUM 7.9 L mg/dL (8.5-10.1) TOTAL PROTEIN 6.8 g/dL (6.4-8.2) ALBUMIN 3.4 g/dL (3.3-5.0) BILIRUBIN, TOTAL 0.6 mg/dL (0.0-1.0) ALKALINE PHOSPHATASE 59 U/L (46-116) AST (SGOT) 20 U/L (15-37) ALT (SGPT) 25 U/L (12-78) Rapid Influenza Screen: (KIRA: 04/05/2016 07:41) ( MsgRcvd 04/05/2016 07:56) Final results SPECIMEN DESCRIPTION: MANAGER ORGANIZATIONAL Test Result Flag Units (Reference) RAPID INFLUENZA SCREEN DATE: 04/05/16 INFLUENZA A: NEGATIVE SCREEN FOR INFLUENZA A INFLUENZA B: NEGATIVE SCREEN FOR INFLUENZA B . PROGRESS AND PROCEDURES Course of Care: Patient is stable. Discussed case with on-call health care provider, ([place] - he saw the patient in the ER). Reviewed test results and need for additional work-up. Agreed upon treatment plan and decision to admit. Patient/family counseled. Old medical records reviewed. Disposition: Admitted. CLINICAL IMPRESSION Pneumonia. Renal insufficiency. (Electronically signed by Jase Estevez MD 04/05/2016 21:17)
--- NOTE | 2016-04-05 01:14 | ED NURSING NOTES ---
Clinical Report - Nurses [facility] [address] [place] [address] 04/04/2016 22:52 Patient: BRIGID MICHAELS TRIAGE Triage time 2300 PM. Acuity: LEVEL 3. Chief Complaint: FEVER, COUGH, SORE THROAT and BODY ACHES. Alert. No acute distress. --23:08 Jacqueline Burton R.N. 23:03 04/04/16. BP: 130/52 (regular adult cuff) taken on the left arm, via an automated monitor, while sitting. HR: 135. RR: 26. O2 saturation: 98% on room air. Temp: 98.9 F. Pain level now: 0/10. --23:08 Jacqueline Burton R.N. Weight: 88.4 kg stated. Height/Length: 68 inches Per Patient. BMI: 29.6. --23:03 Jacqueline Burton R.N. Medications Asa 81 mg daily. --23:05 Jacqueline Burton R.N. Atorvastatin Calcium Oral 40 mg. --03:24 Jones Rose R.N. Losartan Potassium Oral 50 mg. --03:25 Jones Rose R.N. MetFORMIN HCl Oral 500 mg. --03:25 Jones Rose R.N. Toujeo. --03:27 Jones Rose R.N. Apidra Injection. --03:27 Jones Rose R.N. The following entry was struck by Jones Rose R.N., 03:24 (04/05/16) Reason - wrong value. <<STRICKEN ENTRY-- Humalog before each meal. --23:05 Jacqueline Burton R.N. --END STRIKE>> The following entry was struck by Jones Rose R.N., 03:24 (04/05/16) Reason - wrong value. <<STRICKEN ENTRY-- Lantis insulin 50-60units at hs sliding scale. --23:05 Jacqueline Burton R.N. --END STRIKE>> The following entry was struck by Jones Rose R.N., 03:24 (04/05/16) Reason - wrong value. <<STRICKEN ENTRY-- Lisinopril Oral 20 mg, daily. --23:05 Jacqueline Burton R.N. --END STRIKE>> The following entry was struck by Jones Rose R.N., 03:24 (04/05/16) Reason - wrong value. <<STRICKEN ENTRY-- A statin. --23:05 Jacqueline Burton R.N. --END STRIKE>>. Allergies Penicillins. Sulfa Antibiotics. --23:05 Jacqueline Burton R.N. Medication/allergy information source: the patient. --23:08 Jacqueline Burton R.N. History Arrived by EMS. Primary physician (Dr. Mclaughlin). ( PT arrived via EMS, pt states being sick for the past 3 days, sinus pain with SOB, fever 102. with productive yellow sputum noted.). Onset. (3 days). He has had contact with a sick individual. He has had chest congestion, chills, fatigue, sinus pain and a headache. He has had photophobia. No abdominal pain, vomiting or diarrhea. No recent travel. 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 PAST MEDICAL HX: Immunizations: up-to-date. SOCIAL HX: Light tobacco smoker (cigarette)- less than 1/2 a pack per day. Alcohol use. Patient is a recovering alcoholic. No drug use. He has had contact with a sick spouse. No infectious disease exposure. ABUSE ASSESSMENT: No report of abuse. SELF HARM ASSESSMENT: A self harm assessment was performed. The patient answered "no" to the question "Do you have thoughts of harming or killing yourself?" and "Have you recently had thoughts about harming or killing others?". FALL RISK ASSESSMENT: Fall risk assessment completed. No fall risk identified. NUTRITIONAL RISK ASSESSMENT: The nutritional risk assessment revealed no deficiencies. FUNCTIONAL ASSESSMENT: Functional assessment: no impairments noted. LEARNING NEEDS ASSESSMENT: The learning needs assessment revealed no barriers. SKIN INTEGRITY ASSESSMENT: Skin integrity risk assessment completed. No skin integrity risk identified. --23:08 Jacqueline Burton R.N. PROBLEMS: Dehydration. Diarrhea. Fecal Impaction. Constipation. Immunizations. Diabetes Mellitus. Hypertension. Hypercholesterolemia. --23:06 Jacqueline Burton R.N. ADDITIONAL SURGERIES: Polyp removal from vocal cords. --23:06 Jacqueline Burton R.N. Interventions 23:03 04/04/16. ID band on patient. --23:08 Jacqueline Burton R.N. PHYSICAL ASSESSMENT To room via stretcher. GENERAL / NEURO / PSYCH: Alert. Oriented X 4. Appears in no acute distress. HEENT: Mucous membranes are pink. RESPIRATORY: Chest tender. Decreased breath sounds posteriorly and in the bases bilaterally; decreased breath sounds in the right mid-lung posteriorly and upper lung posteriorly; decreased breath sounds in the left mid-lung posteriorly and in the bases bilaterally and upper lung posteriorly. CVS: Pulses within normal limits. GI / : Abdomen soft and nontender. SKIN: Skin is warm and dry. Normal skin turgor. --23: Jacqueline Burton R.N. NURSING PROGRESS NOTES Cardiac rhythm: sinus tachycardia. The initial plan of care for this patient has been created This plan of care was discussed with the patient. Patient gowned. Warming measures: blanket applied. Reassurance given. Two patient identifiers checked. Call light placed in reach. Side rails up x 2. Bed placed in lowest position. Brakes of bed on. --23:10 Jacqueline uBrton R.N. 23:08 04/04/16. BP: 97/46 (regular adult cuff) taken on the right arm, via an automated monitor, while sitting. HR: 135. RR: 24. O2 saturation: 97%. Pain level now: 0/10. --23:10 Jacqueline Burton R.N. 00:13 04/05/2016 Site #1 started via IV in the right antecubital space with an 20g angiocath. Blood drawn: rainbow set. Labeled in the presence of the patient and sent to the lab. --00:13 Jacqueline Burton R.N. EKG time: (0043). EKG was performed by a tech and shown to the ED physician. --00:50 Ashly Valencia, ROBINA Tech1 01:00 04/05/2016 Started bag #1 500 mL IV Fluids IV NS (Saline); at 500 mL/hr over 1 hour(s) via site #1 via IV pump. Allergies verified and confirmed 5 rights. IV patency established. IV site checked: no pain, redness, or swelling. IV flushed thoroughly pre- and post-medication administration. --01:00 Jacqueline Burton R.N. 01:00 04/05/2016 SOLU-MEDROL (MethylPREDNISolone Sodium Succ) IVP 125 mg given over 2 hour(s) via site #1. Allergies verified and confirmed 5 rights. IV patency established. IV site checked: no pain, redness, or swelling. IV flushed thoroughly pre- and post-medication administration. IVP given by RN. --01:00 Jacqueline Burton R.N. 00:01 04/05/16. BP: 92/49 (regular adult cuff) taken on the right arm, via an automated monitor, while sitting. HR: 139 (regular and tachycardic). RR: 20. O2 saturation: 95% on room air. Pain level now: 03/25. --01:04 Jacqueline Burton R.N. Cardiac rhythm: sinus tachycardia. Pulse oximeter applied. Reassurance given. Reassessment after fluids administered and medication administered. He has had no adverse reaction. RESPIRATORY: The patient reports cough. Decreased breath sounds in the bases bilaterally. Two patient identifiers checked. Call light placed in reach. Side rails up x 1. Bed placed in lowest position. Brakes of bed on. --01:04 Jacqueline Burton R.N. Reassessment after medication administered. He is calm and has had no adverse reaction. --01:06 Jacqueline Burton R.N. 01:04 04/05/16. BP: 114/54. HR: 127 (tachycardic). RR: 24. O2 saturation: 95% on room air. Temp: 99 F (oral). Pain level now: 03/25. --01:06 Jacqueline Burton R.N. 00:53 04/05/2016 Duoneb (Ipratropium-Albuterol) Neb TX Nebulizer 1 unit dose given. Given by the respiratory therapist. Allergies verified and confirmed 5 rights. --01:08 Jacqueline Burton R.N. 01:30 04/05/2016 SOLU-MEDROL IVP Response: no adverse reaction. --02:13 Jacqueline Burton R.N. 01:41 04/05/2016 Started 2 gm of Ceftriaxone IVPB in bag #1 50 mL; at 150 mL/hr over 30 minute(s) via site #1 via IV pump. Allergies verified and confirmed 5 rights. IV patency established. IV site checked: no pain, redness, or swelling. IV flushed thoroughly pre- and post-medication administration. --01:42 Jacqueline Burton R.N. 01:50 04/05/2016 IV Fluids IV NS via IV site #1 Rate Changed: bag #1 decreased to 125 mL/hr via IV pump. IV patency established. IV site checked: no pain, redness, or swelling. IV flushed thoroughly. Confirmed 5 Rights. --02:12 Jacqueline Burton R.N. 01:55 04/05/2016 IV Fluids IV NS Discontinued: bag #1 infused upon admission. Total amount infused: 500 mL. IV patency established. IV site checked: no pain, redness, or swelling. IV flushed thoroughly. --02:10 Jacqueline Burton R.N. 01:55 04/05/2016 Ceftriaxone IVPB Discontinued: bag #1 completed upon admission. Total amount infused: 50 mL. IV patency established. IV site checked: no pain, redness, or swelling. IV flushed thoroughly. --02:10 Jacqueline Burton R.N. 02:12 04/05/2016 Started 500 mg of Zithromax (Azithromycin) IVPB in bag #1 500 mL; at 500 mL/hr over 1 hour(s) via site #1 --02:12 Jacqueline Burton R.N. Reassurance given. Reassessment after fluids administered and medication administered. He has had no adverse reaction. Overall patient status is improved- he states feels better. Care transferred and report given (Jayashree Goldman). --02:14 Jacqueline Burton R.N. 02:00 04/05/16. BP: 114/50. HR: 114. RR: 21. O2 saturation: 94% on room air. Pain level now: 0/10. --02:14 Jacqueline Burton R.N. late entry - 00:00 AM. Critical value relayed to ED by 0000 AM. Critical value received by Jacqueline. WBC: 25.3. Critical value read back. Verified lab result and patient ID. ED physician notifed of critical value. Orders were received. ED physician notified. --02:19 Jacqueline Burton R.N. DISPOSITION / DISCHARGE The goals identified in the patient's plan of care were met. Admitted to Acute Care (0220 AM). Report was given to a nurse via a phone call. Report included patient's care, treatment, medications, reviewed medication reconcilliation, and condition (including any recent changes or anticipated changes). All questions were answered. Report was acknowledged and care was transferred. ([place]). --02:21 Jones Rose R.N. 02:19 04/05/16. BP: 114/50 taken on the left arm, via an automated monitor, while lying. HR: 114 (regular, tachycardic and strong). RR: 22 (regular, unlabored and normal). O2 saturation: 94% on room air. Temp: 99.8 F (oral). Pain level now: 0/10. --02:21 Jones Rose R.N. Departure time: 0220 AM. --02:21 Jones Rose R.N. Locked/Released at 04/05/2016 3:27 by Jones Rose R.N.
--- NOTE | 2016-04-05 01:14 | ED ORDER SUMMARY ---
..... Patient: BRIGID MICHAELS OrderSheet Merged With [facility] VisitID: [id number] [address] [place] [address] 81y, M Registration Date/Time: 04/04/2016 ORDER SHEET Weight: 88.4 kg (stated) Allergies: Penicillins, Sulfa Antibiotics GENERAL ORDERS: CBC w Diff Urgent (23:53 04/04/2016 EHassan R.N. verbal order read back to Paola RASMUSSEN) (Ack 23:54 LMuller) (0:13 EHassan R.N.) CMP Urgent (23:53 04/04/2016 EHassan R.N. verbal order read back to Paola RASMUSSEN) (Ack 23:54 LMuller) (0:13 EHassan R.N.) BMP Urgent (23:53 04/04/2016 EHassan R.N. verbal order read back to Paola RASMUSSEN) (Ack 23:54 LMuller) (0:13 EHassan R.N.) (Cancelled: Other0:15 Paola RASMUSSEN) Pulse oximeter (23:53 04/04/2016 EHassan R.N. verbal order read back to Paola RASMUSSEN) (0:13 EHassan R.N.) Chest 2V Urgent (23:53 04/04/2016 EHassan R.N. verbal order read back to Paola RASMUSSEN) (Ack 0:03 LMuller) (0:05 LMuller) PCT (Procalcitonin) Urgent (00:15 04/05/2016 Paola RASMUSSEN) (Ack 0:16 LMuller) (0:17 LMuller) Blood Culture (No) (N/A) Urgent (00:17 04/05/2016 Paola RASMUSSEN) (Ack 0:24 LMuller) (0:58 EHassan R.N.) Inspector Outside Production (Continuous) (00:26 04/05/2016 Paola RASMUSSEN) (0:30 EHassan R.N.) CPK Urgent (00:27 04/05/2016 Paola RASMUSSEN) (Ack 0:28 LMuller) (0:29 EHassan R.N.) Troponin-I Urgent (00:27 04/05/2016 Paola RASMUSSEN) (Ack 0:28 LMuller) (0:29 Rajn R.N.) BNP Urgent (00:27 04/05/2016 Paola RASMUSSEN) (Ack 0:28 LMuller) (0:29 Jose Alfredo R.N.) Pulse oximeter (00:27 04/05/2016 Paola RASMUSSEN) (0:30 Jose Alfredo R.N.) EKG - ER Stat (00:27 04/05/2016 Paola RASMUSSEN) (Ack 0:28 LMuller) (0:41 ALawrence ER Tech1) Lactic Acid for Sepsis Protocol Urgent (00:30 04/05/2016 Jose Alfredo R.NCatalina verbal order read back to Paola RASMUSSEN) (Ack 0:32 LMuller) (0:32 LMuller) Rapid Influenza Screen (Nasal Pharyngeal) (CLAIMS ATTORNEY) Urgent (01:52 04/05/2016 Paola RASMUSSEN) (Ack 1:55 LMuller) MEDICATION ORDERS: DuoNeb Neb Tx 1 unit dose (NOW) (00:25 04/05/2016 Paola RASMUSSEN) (Cancelled: Other0:29 Paola RASMUSSEN) DuoNeb Neb Tx 1 unit dose (NOW) (00:40 04/05/2016 Paola RASMUSSEN) (1:08 GRICELDAassaraj R.N.) IV FLUIDS: IV Saline Lock (23:53 04/04/2016 Jose Alfredo R.NCatalina verbal order read back to Paola RASMUSSEN) (0:13 GRICELDAassaraj R.N.) Solu-MEDROL IV 125 mg (NOW) (00:25 04/05/2016 Paola RASMUSSEN) (Cancelled: Other0:29 Paola RASMUSSEN) IV Saline Lock (00:04/05/2016 Paola RASMUSSEN) (Cancelled: Other0:27 Paola RASMUSSEN) IV NS : initial bolus 500 mL (1000 mL/hr), then 125 mL/hr for 4h (NOW); Urgent (00:04/05/2016 Paola RASMUSSEN) (1:00 GRICELDAassaraj R.N.) Solu-MEDROL IV 125 mg (NOW) (00:41 04/05/2016 Paola RASMUSSEN) (1:00 Jose Alfredo R.N.) Zithromax IV 500 mg/250 mL (NOW) (01:12 04/05/2016 Paola RASUMSSEN) (2:12 Jose Alfredo R.N.) Ceftriaxone IV 2 gm/50mL (NOW) (01:13 04/05/2016 Paola RASMUSSEN) (1:42 Jose Alfredo R.N.) ORDER SHEET NOTES: [Electronically signed by Jones Rose R.N. (:04/05/2016)] [Electronically signed by Jase Estevez MD (21:17 04/05/2016)] [Electronically locked/signed by Jones Rose R.N. (04/05/2016)]
--- NOTE | 2016-04-05 01:14 | ED ORDER SUMMARY ---
..... Patient: BRIGID MICHAELS OrderSheet [facility] VisitID: [id number] [address] [place] [address] 81y, M Registration Date/Time: 04/04/2016 ORDER SHEET Weight: 88.4 kg (stated) Allergies: Penicillins, Sulfa Antibiotics GENERAL ORDERS: CBC w Diff Urgent (23:53 04/04/2016 EHassan R.N. verbal order read back to Paola RASMUSSEN) (Ack 23:54 LMuller) (0:13 EHassan R.N.) CMP Urgent (23:53 04/04/2016 EHassan R.N. verbal order read back to Paola RASMUSSEN) (Ack 23:54 LMuller) (0:13 EHassan R.N.) BMP Urgent (23:53 04/04/2016 EHassan R.N. verbal order read back to Paola RASMUSSEN) (Ack 23:54 LMuller) (0:13 EHassan R.N.) (Cancelled: Other0:15 Paola RASMUSSEN) Pulse oximeter (23:53 04/04/2016 EHassan R.N. verbal order read back to Paola RASMUSSEN) (0:13 EHassan R.N.) Chest 2V Urgent (23:53 04/04/2016 EHassan R.N. verbal order read back to Paola RASMUSSEN) (Ack 0:03 LMuller) (0:05 LMuller) PCT (Procalcitonin) Urgent (00:15 04/05/2016 Paola RASMUSSEN) (Ack 0:16 LMuller) (0:17 LMuller) Blood Culture (No) (N/A) Urgent (00:17 04/05/2016 Paola RASMUSSEN) (Ack 0:24 LMuller) (0:58 EHassan R.N.) Chronic Specialist (Continuous) (00:26 04/05/2016 Paola RASMUSSEN) (0:30 EHassan R.N.) CPK Urgent (00:27 04/05/2016 Paola RASMUSSEN) (Ack 0:28 LMuller) (0:29 EHassan R.N.) Troponin-I Urgent (00:27 04/05/2016 Paola RASMUSSEN) (Ack 0:28 LMuller) (0:29 Rajn R.N.) BNP Urgent (00:27 04/05/2016 Paola RASMUSSEN) (Ack 0:28 LMuller) (0:29 Jose Alfredo R.N.) Pulse oximeter (00:27 04/05/2016 Paola RASMUSSEN) (0:30 Jose Alfredo R.N.) EKG - ER Stat (00:27 04/05/2016 Paola RASMUSSEN) (Ack 0:28 LMuller) (0:41 ALawrence ER Tech1) Lactic Acid for Sepsis Protocol Urgent (00:30 04/05/2016 Jose Alfredo R.NCatalina verbal order read back to Paola RASMUSSEN) (Ack 0:32 LMuller) (0:32 LMuller) Rapid Influenza Screen (Nasal Pharyngeal) (ENERGY AUDIT ADVISOR) Urgent (01:52 04/05/2016 Paola RASMUSSEN) (Ack 1:55 LMuller) MEDICATION ORDERS: DuoNeb Neb Tx 1 unit dose (NOW) (00:25 04/05/2016 Paola RASMUSSEN) (Cancelled: Other0:29 Paola RASMUSSEN) DuoNeb Neb Tx 1 unit dose (NOW) (00:40 04/05/2016 Paola RASMUSSEN) (1:08 GRICELDAassaraj R.N.) IV FLUIDS: IV Saline Lock (23:53 04/04/2016 Jose Alfredo R.NCatalina verbal order read back to Paola RASMUSSEN) (0:13 GRICELDAassaraj R.N.) Solu-MEDROL IV 125 mg (NOW) (00:25 04/05/2016 Paola RASMUSSEN) (Cancelled: Other0:29 Paola RASMUSSEN) IV Saline Lock (00:04/05/2016 Paola RASMUSSEN) (Cancelled: Other0:27 Paola RASMUSSEN) IV NS : initial bolus 500 mL (1000 mL/hr), then 125 mL/hr for 4h (NOW); Urgent (00:04/05/2016 Paola RASMUSSEN) (1:00 GRICELDAassaraj R.N.) Solu-MEDROL IV 125 mg (NOW) (00:41 04/05/2016 Paola RASMUSSEN) (1:00 Jose Alfredo R.N.) Zithromax IV 500 mg/250 mL (NOW) (01:12 04/05/2016 Paola RASMUSSEN) (2:12 Jose Alfredo R.N.) Ceftriaxone IV 2 gm/50mL (NOW) (01:13 04/05/2016 Paola RASMUSSEN) (1:42 Jose Alfredo R.N.) ORDER SHEET NOTES: [Electronically signed by Jones Rose R.N. (:04/05/2016)] [Electronically signed by Jase Estevez MD (21:17 04/05/2016)] [Electronically locked/signed by Jones Rose R.N. (04/05/2016)]
--- NOTE | 2016-04-05 01:14 | ED CLINICAL REPORT ---
Clinical Report - Physicians/Mid Levels [facility] [address] [place] [address] 04/04/2016 22:52 Patient: BRIGID MICHAELS Time Seen: 00:14. Arrived- By private vehicle. Historian- patient. HISTORY OF PRESENT ILLNESS Chief Complaint: COUGH. This started about 5 days ago and is still present. It was gradual in onset and has been constant. The illness is described as severe. The patient has had thick, yellow sputum, a cough, difficulty breathing on exertion, sinus pressure and chills. No chest discomfort or pain. He has had low grade fever (101.6 F). Additional history - The patient has had contact with a sick spouse. They have had similar symptoms. REVIEW OF SYSTEMS The patient has had fever and chills and experienced sweats. No calf pain, chest pain, pedal edema, palpitations or abdominal pain. No black stools, bloody stools, constipation, diarrhea or nausea. No vomiting or urinary problems. All systems otherwise negative, except as recorded above. PAST HISTORY Dr. Mclaughlin. Problems: Sick Contact. Dehydration. Diarrhea. Fecal Impaction. Constipation. Diabetes Mellitus. Hypertension. Hypercholesterolemia. Additional Surgeries: Polyp removal from vocal cords. Medications: A statin. Asa 81 mg daily. Humalog before each meal. Lantis insulin 50-60units at hs sliding scale. Lisinopril Oral 20 mg, daily. Allergies: Penicillins. Sulfa Antibiotics. SOCIAL HISTORY Current every day heavy tobacco smoker (cigarette)- less than 1 pack per day. Alcohol use. Patient is a recovering alcoholic. No drug use. Is a local resident. He lives with spouse. Has good social support. FAMILY HISTORY Diabetes in first-degree relative (mother); cancer in first-degree relative (mother and father). ADDITIONAL NOTES The nursing notes have been reviewed. PHYSICAL EXAM Vital Signs: 04/04/2016 23:03 BP: 130/52. HR: 135. RR: 26. O2 saturation: 98%. Temp: 98.9 F. Pain level now: 0/10. Have been reviewed. Appearance: Alert. Eyes: Pupils equal, round and reactive to light. ENT: Pharynx normal. Neck: Normal inspection. Neck supple. CVS: Normal heart rate and rhythm. Heart sounds normal. Respiratory: No respiratory distress. Rhonchi present in the right lung base. Abdomen: Soft and nontender. No organomegaly. Back: Normal inspection. No CVA tenderness. Skin: Skin warm and dry. Normal skin color. No rash. Normal skin turgor. Extremities: Extremities exhibit normal ROM. No calf tenderness. No lower extremity edema. LABS, X-RAYS, AND EKG EKG: Rate: 128. Junctional rhythm present (acceleratedwith retrograde conduction). Q waves in lead V1. Left axis deviation. Prior EKG unavailable. The study has been independently viewed by me. Chest X-ray: Infiltrate in the right lower lobe. The X-rays were independently viewed by me. Laboratory Tests: CBC w Manual Diff: (KIRA: 04/05/2016 18:37) ( [facility] 04/05/2016 19:28) Final results Test Result Flag Units (Reference) WHITE BLOOD COUNT NO REFLEX 20.2 H K/uL (4.5-11.5) RED BLOOD COUNT 3.29 L M/uL (4.50-5.90) HEMOGLOBIN 10.2 L gm/dL (13.5-17.5) HEMATOCRIT 30.8 L % (41.0-53.0) MEAN CELL VOLUME 94 fL (80-100) MEAN CORPUSCULAR HGB 31 pg (26-34) MEAN CORPUSCULAR HGB CONC 33 g/dL (31-37) RED CELL DISTRIBUTION WIDTH 16.0 H % (11.6-14.8) PLATELET COUNT 134 L K/uL (150-400) POLY % 66 % (50-75) BAND % 13 H % (0-8) LYMPH 3 L % (25-40) MONO 18 H % (3-14) EOSINOPHIL % 0 % (0-4) BASOPHIL % 0 % (0-2) METAMYELOCYTE % 0 % (0-1) MYELOCYTE 0 % (0-1) OTHER CELL TYPE 0 OVALOCYTES 1+ JAC CELLS 1+ [id number]: (KIRA: 04/05/2016 18:37) ( [facility] 04/05/2016 19:40) Final results Test Result Flag Units (Reference) PROCALCITONIN <0.5 ng/mL (0-0.5) PCT Concentration: Interpretation : Risk/option for action PCT <=0.5 ng/mL : Systemic : Low risk forinfection(sepsis): progression to severeis not likely. : systemic infection.Local bacterial : CAUTION-PCT levelsinfection is : below 0.5 ng/mL do notpossible. : exclude an infection,because localizedinfections (withoutsystemic signs) may beassociated with suchlow levels. If PCT ismeasured very earlyafter a bacterialchallenge (usually <6hours), these valuesmay still be low. Inthis case PCT shouldbe re-assessed 6-24hours later. PCT >0.5 and : Systemic infection: Moderate risk for<= 2 ng/mL : (sepsis) is : progression to severepossible, but : systemic infection.other conditions : The patient should beare known to : closely monitoredelevate PCT. : both clinically andby re-assessing PCTwithin 6-24 hours. PCT > 2 ng/mL : Systemic infection: High risk for(sepsis) is likely: progression to severeunless other : systemic infection.causes are known. : PCT >= 10 ng/mL : Important systemic: High likelihood ofinflammatory : severe sepsis orresponse, almost : septic shock.exclusively due to:severe bacterial :sepsis or septic :shock. : [id number]: (KIRA: 04/05/2016 00:01) ( [facility] 04/05/2016 01:13) Final results Test Result Flag Units (Reference) LACTIC ACID SEPSIS PROTOCOL 1.2 mmol/L (0.4-2.0) BNP: (KIRA: 04/05/2016 00:01) ( [facility] 04/05/2016 00:57) Final results Test Result Flag Units (Reference) B-TYPE NATRIURETIC PEPTIDE 105 H pg/ml (5-100) CPK: (KIRA: 04/05/2016 00:01) ( [facility] 04/05/2016 00:51) Final results Test Result Flag Units (Reference) CPK 148 U/L (24-260) TROPONIN I <0.05 ng/mL (0.00-1.5) TROPONIN REFERENCE RANGE:<0.1 NEGATIVE0.1-1.5 INDETERMINANT>1.5 POSITIVE [id number]: (KIRA: 04/05/2016 00:00) ( [facility] 04/05/2016 01:26) Final results Test Result Flag Units (Reference) PROCALCITONIN <0.5 ng/mL (0-0.5) PCT Concentration: Interpretation : Risk/option for action PCT <=0.5 ng/mL : Systemic : Low risk forinfection(sepsis): progression to severeis not likely. : systemic infection.Local bacterial : CAUTION-PCT levelsinfection is : below 0.5 ng/mL do notpossible. : exclude an infection,because localizedinfections (withoutsystemic signs) may beassociated with suchlow levels. If PCT ismeasured very earlyafter a bacterialchallenge (usually <6hours), these valuesmay still be low. Inthis case PCT shouldbe re-assessed 6-24hours later. PCT >0.5 and : Systemic infection: Moderate risk for<= 2 ng/mL : (sepsis) is : progression to severepossible, but : systemic infection.other conditions : The patient should beare known to : closely monitoredelevate PCT. : both clinically andby re-assessing PCTwithin 6-24 hours. PCT > 2 ng/mL : Systemic infection: High risk for(sepsis) is likely: progression to severeunless other : systemic infection.causes are known. : PCT >= 10 ng/mL : Important systemic: High likelihood ofinflammatory : severe sepsis orresponse, almost : septic shock.exclusively due to:severe bacterial :sepsis or septic :shock. : CBC w Diff: (KIRA: 04/04/2016 00:00) ( MsgRcvd 04/05/2016 00:14) IP Test Result Flag Units (Reference) WHITE BLOOD COUNT 25.3 *H K/uL (4.5-11.5) CRITICAL RESULTS CALLEDCalled to KAVIN 04/05/16 0013Were 2 patient identifiers used? YWas the result read back? Y RED BLOOD COUNT 4.03 L M/uL (4.50-5.90) HEMOGLOBIN 12.1 L gm/dL (13.5-17.5) HEMATOCRIT 37.1 L % (41.0-53.0) MEAN CELL VOLUME 92 fL (80-100) MEAN CORPUSCULAR HGB 30 pg (26-34) MEAN CORPUSCULAR HGB CONC 33 g/dL (31-37) RED CELL DISTRIBUTION WIDTH 15.2 H % (11.6-14.8) PLATELET COUNT 153 K/uL (150-400) LYMPH % 10.3 L % (25-40) MONO % 4.4 % (3-14) GRANULOCYTE % 85.3 CMP: (KIRA: 04/04/2016 00:00) ( MsgRcvd 04/05/2016 00:23) Final results Test Result Flag Units (Reference) GLUCOSE 180 H mg/dL (70-110) BUN 31 H mg/dL (7-18) CREATININE 1.7 H mg/dL (0.6-1.3) Estimated GFR 41.53 mL/min Estimated GFR- 50.33 mL/min Note: Persistent reduction over 3 months in eGFR<60 mL/min/1.73 m2 defines CKD. Patients with eGFR values>=60 mL/min/1.73 m2 may also have CKD if evidence ofpersistent proteinuria. Additional information may be foundat www.[email or web address].org. SODIUM 137 mmol/L (136-145) POTASSIUM 4.5 mmol/L (3.5-5.1) CHLORIDE 102 mmol/L (98-107) CARBON DIOXIDE 23 mmol/L (21-32) CALCIUM 7.9 L mg/dL (8.5-10.1) TOTAL PROTEIN 6.8 g/dL (6.4-8.2) ALBUMIN 3.4 g/dL (3.3-5.0) BILIRUBIN, TOTAL 0.6 mg/dL (0.0-1.0) ALKALINE PHOSPHATASE 59 U/L (46-116) AST (SGOT) 20 U/L (15-37) ALT (SGPT) 25 U/L (12-78) Rapid Influenza Screen: (KIRA: 04/05/2016 07:41) ( MsgRcvd 04/05/2016 07:56) Final results SPECIMEN DESCRIPTION: PSYCH SOCIAL WORKER Test Result Flag Units (Reference) RAPID INFLUENZA SCREEN DATE: 04/05/16 INFLUENZA A: NEGATIVE SCREEN FOR INFLUENZA A INFLUENZA B: NEGATIVE SCREEN FOR INFLUENZA B . PROGRESS AND PROCEDURES Course of Care: Patient is stable. Discussed case with on-call health care provider, ([place] - he saw the patient in the ER). Reviewed test results and need for additional work-up. Agreed upon treatment plan and decision to admit. Patient/family counseled. Old medical records reviewed. Disposition: Admitted. CLINICAL IMPRESSION Pneumonia. Renal insufficiency. (Electronically signed by Jase Estevez MD 04/05/2016 21:17)
--- NOTE | 2016-04-05 02:03 | Progress Note ---
Subjective General Full note dictated: 81 yo male with DM, HTN, COPD, high cholesterol presents to the ER with cough and fevers and not feeling well. did have similar symptoms prior. Has hx of copd and still smokes. In his work up he has expanded lungs, tender sinuses, elevated glucose and WBC Plan: admit for copd exacerbation with abx, steroids PO, and home meds. Monitor on fluids/ blood count..
[2016-04-05] MEDS ORDERED: RIOMET PO (02:51)
[2016-04-05] MEDS ORDERED: ASPIRIN ADULT L81 MG PO (02:53)
[2016-04-05] MEDS ORDERED: LOSARTAN (02:54)
[2016-04-05] MEDS ORDERED: FISH OIL306 MG (02:54)
[2016-04-05 02:55] VITALS: BP 106/57
--- NOTE | 2016-04-05 02:55 | HISTORY AND PHYSICAL ---
ADMITTED: 04/05/2016 CHIEF COMPLAINT: 1. Cough 2. Facial pain HISTORY OF PRESENT ILLNESS: The patient is a 81-year-old male who presented to the emergency department with a cough that started about 5 days ago. It was similar to some illness that his had who was having some issues at home feeling lousy and achy. He started having some fevers as high as 101.6 and he decided to come into the emergency department for further evaluation as he was feeling so poorly. MEDICAL/SURGICAL HISTORY: Past medical history: He has had constipation and diarrhea in the past and fecal impactions. He has had diabetes, hypertension, high cholesterol, and some chronic renal insufficiency as well as chronic sinusitis. Past surgical history, he has had polyp removal from his vocal cords and cataract surgery. MEDICATIONS: 1. He is not 100% on his dosing, but he is on Metformin XR 500 mg p.o. daily. 2. Losartan 50 mg p.o. daily. 3. Aspirin 81 mg p.o. daily. 4. Atorvastatin 40 mg p.o. daily. 5. Toujeo 64 units subcutaneous daily. 6. Apidra 11 units with meals. ALLERGIES: 1. PENICILLIN. 2. SULFA. SOCIAL HISTORY: He lives with his . He has not drank for years, was an alcoholic in the distant past. He smokes about a half pack per day he states. FAMILY HISTORY: Diabetes in his mom, also his mom of blood cancer. His father of pancreatic cancer. CODE STATUS: HE STATES IS DO NOT RESUSCITATE/DO NOT INTUBATE, "HIS IS NOT SO SURE ABOUT THIS AND THEY ARE WORKING ON FILLING OUT PAPERWORK AT HOME." REVIEW OF SYSTEMS: Positive for fever, chills, some sweats, cough, face pain, and severe sinus tenderness which is chronic. He denies black or bloody stools or bleeding anywhere. He denies any other medical problems with constipation or diarrhea currently. PHYSICAL EXAMINATION: GENERAL: He is an alert male, who is cooperative, and in no apparent distress. VITAL SIGNS: His vital signs: Blood pressure 130/52, heart rate of 135, respirations 26, saturating 98% on room air, temperature 98.9. HEENT: Extraocular movements intact. Pupils, right side has an abnormal pupil shape and is chronic. His oropharynx has moist mucous membranes and dentures. NECK: Supple. There is about 3 cm jugular venous distension. LUNGS: Have coarse breath sounds bilaterally, nonfocal. HEART: Tachycardic with distant heart sounds. ABDOMEN: Soft, nontender, nondistended. EXTREMITIES: No edema. No sores. GENITOURINARY: Deferred. RECTAL: Deferred. NEUROLOGIC: Cranial nerves II-XII intact. Strength and sensation grossly intact. LAB/IMAGING: EKG shows a rate of 128, possible junctional rhythm with accelerated half retrograde conduction. There is inferior Q-waves, otherwise nonfocal chest x- ray. There is a possibility of a right lower lobe infiltrate, but mostly hyperexpansion that I am noticing and some shadowing from his breast that might be influencing the right lower lobe. His BNP is 105, CPK of 148, troponin I less than 0.05. White count of 25.3 , hematocrit of 37.1, and platelets of 153, glucose 180, BUN of 31, creatinine 1.7 , sodium 137, potassium 4.5, chloride of 102, HC03 23, calcium 7.9, total protein 6.8, albumin 3.4, bilirubin 0.6, alkaline phosphatase 59, AST of 20, ALT 25. IMPRESSION/PLAN: 1. This is a 81-year-old male with a history of diabetes, hypertension, and he presents to the emergency department with a cough for a few days. He also has a history of chronic obstructive pulmonary disease and is still smoking. His workup is consistent with chronic obstructive pulmonary disease in the face of diabetes and hypertension. He also has a very tender sinuses and possible sinusitis. His elevated white count is possibly a reaction to steroids, depending on when they were given and/or this illness. We will treat him with ceftriaxone and azithromycin and await final read on his chest x-ray, initially read as right lower lobe infiltrate in the emergency department. Also we will check for influenza at this time and I will treat him with breathing treatments as well as his home medications.
--- NOTE | 2016-04-05 05:19 | DIAGNOSTIC IMAGING REPORT ---
PROCEDURE: XR CHEST 2 VIEW INDICATION: CONGESTION TECHNIQUE: PA and lateral views. COMPARISON: None. FINDINGS: There are mild bibasilar and right lateral midlung parenchymal changes. Lungs are otherwise clear. Heart and mediastinum are normal. Thorax is normal. IMPRESSION: 1. Mild and right mid lung parenchymal changes. While these changes may be chronic (e.g. parenchymal scarring), underlying pneumonia might be considered.
[2016-04-05 07:43] VITALS: BP 115/41
--- NOTE | 2016-04-05 07:57 | Progress Note ---
Subjective General Note Date: April 05, 2016 Admission Date: April 05, 2016 Hospital Day: 1 Status: Inpatient Advanced Directive: NO CODE Room: 211 Brief History: The patient is a 81-year-old white male with a significant past medical history of diabetes mellitus, hypertension, hyperlipidemia, chronic kidney disease, chronic sinusitis, who presented to [facility] emergency department secondary to complaints of cough, generalized malaise, and facial pain. [facility] ER evaluation was consistent with exacerbation of COPD, sinusitis, pneumonia rule out influenza. Secondary to the above, the patient was admitted by Magan Callahan M.D. for further evaluation and treatment. For other history present illness, past medical history, family history, social history, review of systems, and admission physical examination please see the patient's history and physical examination and ER visit note in the patient's medical record. Subjective: The patient states his status is much improved. 50-60% improvement in respiratory status since admission. No complaints or requests at this time Patient requests: None Medications and Allergies Medications Current Medications Sig/Jude Start time Last Medication Dose Route Stop Time Status Admin Atorvastatin Calcium 40 MG QPM 04/05 1800 AC PO Aspirin 81 MG DAILY 04/05 0900 AC PO Azithromycin 500 MG DAILY 04/05 0900 AC PO 04/07 1300 Candesartan Cilexetil 2 MG BID 04/05 0900 AC PO Ceftriaxone Sodium/ 50 ML DAILY 04/05 0900 AC Dextrose IV Patient Own See Dose DAILY 04/05 0900 AC Medication Insts (1) SC Tiotropium Redbird See Dose DAILY@0800 04/05 0800 AC Insts (2) IN Insulin Human Lispro See Dose ACHS 04/05 0730 AC Insts (3) SC Insulin Human Lispro 10 UNITS AC 04/05 0730 AC SC Levalbuterol HCl 1.25 MG RTQ4H 04/05 0400 AC IN Sodium Chloride 3 ML ASDIRECTED 04/05 0215 AC IN Acetaminophen 650 MG Q6H PRN 04/05 0200 AC PO Sodium Chloride 1,000 ML ASDIRECTED 04/05 0200 AC 04/05 IV 0716 Dose Instructions: (1)Patient Own Medication: (tujeo 64 UNITS) (2)Tiotropium Redbird: 1 CAPSULE VIA HANDIHALER (3)Insulin Human Lispro: MEDIUM DOSE SLIDING SCALE Allergies Coded Allergies: Penicillins (04/05/16) Sulfa Antibiotics (04/05/16) Physical Exam Vital Signs / I&Os Vital Signs Date Time Temp Pulse Resp B/P Pulse O2 O2 Flow FiO2 Ox Delivery Rate 04/05 0743 98.1 74 16 115/41 94 Room Air 0.0 04/05 0408 Room Air 04/05 0255 97.7 109 18 106/57 94 General Appearance Alert, Oriented X3, Cooperative, No acute distress Lungs Normal air movement, Scattered rhonchi, minimal expiratory wheezes Cardiovascular Regular rate and rhythm, Normal S1 and S2 Abdomen Normal bowel sounds, Soft, No tenderness Extremities No cyanosis, No clubbing Neurological Grossly normal Psych/Mental Status Mental status normal, Mood normal LAB Results Laboratory Tests 04/05 04/05 04/05 04/05 0001 0001 0001 0000 Chemistry Lactic Acid (0.4 - 2.0 mmol/L) 1.2 Creatine Kinase (24 - 260 U/L) 148 Troponin (0.00 - 1.5 ng/mL) <0.05 B-Natriuretic Peptide (5 - 100 pg/ml) 105 Procalcitonin (0 - 0.5 ng/mL) <0.5 Microbiology Date/Time Procedure - Status Source Growth 04/05 0741 Influenza Screen - RECD NASALPHAR 04/05 0045 Blood Culture - RECD BLOOD 04/05 0040 Blood Culture - RECD BLOOD Assessment and Plan Problem List 1. COPD exacerbation Plan -mild -Continue present therapy -O2 sat normal on room air 2. Diabetes Plan -blood sugar elevated -Patient to be placed on outpatient medical regim -Before meals/at bedtime blood sugar -Monitor -Continue insulin sliding scale 3. Hypertension Plan -stable -Low salt diet -Monitor -Continue present therapy 4. Pneumonia Status Acute Onset Date Unknown Plan -stable -Afebrile with normal procalcitonin -Continue present therapy -Switched oral meds in a.m. if stable Current status: fair, improved Anticipated discharge date: Anticipated discharge 1-2 days with improved status Anticipated discharge placement: Home Patient care time: Time spent in chart review, patient interview, physical exam, CPOE, and care documentation: 25 minutes Visit to patient today: 1 Complexity of care: Moderate E&M Codes Rounding: Inpt-Moderate/[id number]
[2016-04-05] MEDS ORDERED: METFORMIN HCL500 MG PO (10:15)
[2016-04-05 10:16] VITALS: BP 164/125
[2016-04-05] MEDS ORDERED: COZAAR50 MG PO (10:16)
[2016-04-05] MEDS ORDERED: ATORVASTATIN CA40 MG PO (10:16)
[2016-04-05] MEDS ORDERED: TOUJEO SOL300 UNIT/M SC (10:17)
[2016-04-05] MEDS ORDERED: APIDRA1 ML (10:18)
[2016-04-05 14:38] VITALS: BP 125/61
[2016-04-05 19:12] VITALS: BP 130/68
--- NOTE | 2016-04-05 21:17 | ED MAR SUMMARY ---
..... Medication Administration Record [facility] [address] [address] Patient: BRIGID MICHAELS Visit ID: [id number] 81y, M Weight: 88.4 kg Height/Length: 68 in BMI: 29.6 ALLERGIES: Penicillins, Sulfa Antibiotics Given 00:53 04/05/2016 Jacqueline Burton R.N. Medication Administered: DUONEB [NEB TX] (IPRATROPIUM-ALBUTEROL), Dose: 1 unit dose Nebulizer Neb TX. Medication Ordered: DuoNeb Neb Tx 1 unit dose (NOW). Given 01:00 04/05/2016 Jacqueline Burton R.N. Medication Administered: SOLU-MEDROL [IVP] (METHYLPREDNISOLONE SODIUM SUCC), Dose: 125 mg IVP over 2 hour(s), Site: #1 right AC. Medication Ordered: Solu-MEDROL IV 125 mg (NOW). Start 01:00 04/05/2016 Jacqueline Burton R.N., Stop 01:55 04/05/2016 Jacqueline Burton R.N. Medication Administered: IV NS (SALINE), Dose: IV Fluids over 1 hour(s), Rate: 500 mL/hr, Dispensed: 500 mL bag, Site: #1 right AC. Medication Ordered: IV NS : initial bolus 500 mL (1000 mL/hr), then 125 mL/hr for 4h (NOW); Urgent. Start 01:41 04/05/2016 Jacqueline Burton R.N., Stop 01:55 04/05/2016 Jacqueline Burton R.N. Medication Administered: CEFTRIAXONE [IVPB], Dose: 2 gm IVPB over 30 minute(s), Rate: 150 mL/hr, Dispensed: 50 mL bag, Site: #1 right AC. Medication Ordered: Ceftriaxone IV 2 gm/50mL (NOW). Start 02:12 04/05/2016 Jacqueline Burton R.N. Medication Administered: ZITHROMAX [IVPB] (AZITHROMYCIN), Dose: 500 mg IVPB over 1 hour(s), Rate: 500 mL/hr, Dispensed: 500 mL bag, Site: #1 right AC. Medication Ordered: Zithromax IV 500 mg/250 mL (NOW).
--- NOTE | 2016-04-05 21:17 | ED MED RECONCILIATION SUMMARY ---
Patient: BRIGID MICHAELS Medication Reconciliation Report [facility] VisitID: [id number] [address] [place] [address] 81y, M Registration Date/Time: 04/04/2016 Weight: 88.4 kg Height/Length: 68 in. BMI: 29.6 ALLERGIES: Penicillins, Sulfa Antibiotics The patient's Home Medications are listed below: THE FOLLOWING MEDICATIONS NEED TO BE RECONCILED: Apidra Injection Asa 81 mg daily Atorvastatin Calcium Oral 40 mg Losartan Potassium Oral 50 mg MetFORMIN HCl Oral 500 mg Toujeo The source(s) of the original Home Medication information: patient The following Medications were given to the patient in the Emergency Department: IV NS IV Fluids bolus 0, then 500 mL/hr, administered: 04/05/2016 1:00:00 AM SOLU-MEDROL [IVP] IVP 125 mg, administered: 04/05/2016 1:00:00 AM Duoneb [Neb Tx] Neb TX 1 unit dose, administered: 04/05/2016 12:53:00 AM Ceftriaxone [IVPB] IVPB bolus 0, then 2 gm 150 mL/hr, administered: 04/05/2016 1:41:00 AM Zithromax [IVPB] IVPB bolus 0, then 500 mg 500 mL/hr, administered: 04/05/2016 2:12:00 AM The following Medications were prescribed to the patient: None.
--- NOTE | 2016-04-05 21:17 | ED MED RECONCILIATION SUMMARY ---
Patient: BRIGDI MICHAELS Medication Reconciliation Report [facility] VisitID: [id number] [address] [place] [address] 81y, M Registration Date/Time: 04/04/2016 Weight: 88.4 kg Height/Length: 68 in. BMI: 29.6 ALLERGIES: Penicillins, Sulfa Antibiotics The patient's Home Medications are listed below: THE FOLLOWING MEDICATIONS NEED TO BE RECONCILED: Apidra Injection Asa 81 mg daily Atorvastatin Calcium Oral 40 mg Losartan Potassium Oral 50 mg MetFORMIN HCl Oral 500 mg Toujeo The source(s) of the original Home Medication information: patient The following Medications were given to the patient in the Emergency Department: IV NS IV Fluids bolus 0, then 500 mL/hr, administered: 04/05/2016 1:00:00 AM SOLU-MEDROL [IVP] IVP 125 mg, administered: 04/05/2016 1:00:00 AM Duoneb [Neb Tx] Neb TX 1 unit dose, administered: 04/05/2016 12:53:00 AM Ceftriaxone [IVPB] IVPB bolus 0, then 2 gm 150 mL/hr, administered: 04/05/2016 1:41:00 AM Zithromax [IVPB] IVPB bolus 0, then 500 mg 500 mL/hr, administered: 04/05/2016 2:12:00 AM The following Medications were prescribed to the patient: None.
--- NOTE | 2016-04-05 21:17 | ED DISCHARGE INSTRUCTIONS ---
Patient: BRIGID MICHAELS General Instructions [facility] VisitID: [id number] [address] [place] [address] 81y, M Registration Date/Time: 04/04/2016 Pneumonia. Renal insufficiency. (Electronically signed by Jase Estevez MD 04/05/2016 21:17)
--- NOTE | 2016-04-05 21:17 | ED DISCHARGE INSTRUCTIONS ---
Patient: BRIGID MICHAELS General Instructions [facility] VisitID: [id number] [address] [place] [address] 81y, M Registration Date/Time: 04/04/2016 Pneumonia. Renal insufficiency. (Electronically signed by Jase Estevez MD 04/05/2016 21:17)
--- NOTE | 2016-04-05 21:17 | ED MAR SUMMARY ---
..... Medication Administration Record [facility] [address] [place] [address] Patient: BRIGID MICHAELS Visit ID: [id number], M Weight: 88.4 kg Height/Length: 68 in BMI: 29.6 ALLERGIES: Penicillins, Sulfa Antibiotics Given 00:53 04/05/2016 Jacqueline Burton R.N. Medication Administered: DUONEB [NEB TX] (IPRATROPIUM-ALBUTEROL), Dose: 1 unit dose Nebulizer Neb TX. Medication Ordered: DuoNeb Neb Tx 1 unit dose (NOW). Given 01:00 04/05/2016 Jacqueline Burton R.N. Medication Administered: SOLU-MEDROL [IVP] (METHYLPREDNISOLONE SODIUM SUCC), Dose: 125 mg IVP over 2 hour(s), Site: #1 right AC. Medication Ordered: Solu-MEDROL IV 125 mg (NOW). Start 01:00 04/05/2016 Jacqueline Burton R.N., Stop 01:55 04/05/2016 Jacqueline Burton R.N. Medication Administered: IV NS (SALINE), Dose: IV Fluids over 1 hour(s), Rate: 500 mL/hr, Dispensed: 500 mL bag, Site: #1 right AC. Medication Ordered: IV NS : initial bolus 500 mL (1000 mL/hr), then 125 mL/hr for 4h (NOW); Urgent. Start 01:41 04/05/2016 Jacqueline Burton R.N., Stop 01:55 04/05/2016 Jacqueline Burton R.N. Medication Administered: CEFTRIAXONE [IVPB], Dose: 2 gm IVPB over 30 minute(s), Rate: 150 mL/hr, Dispensed: 50 mL bag, Site: #1 right AC. Medication Ordered: Ceftriaxone IV 2 gm/50mL (NOW). Start 02:12 04/05/2016 Jacqueline Burton R.N. Medication Administered: ZITHROMAX [IVPB] (AZITHROMYCIN), Dose: 500 mg IVPB over 1 hour(s), Rate: 500 mL/hr, Dispensed: 500 mL bag, Site: #1 right AC. Medication Ordered: Zithromax IV 500 mg/250 mL (NOW).
[2016-04-05 22:57] VITALS: BP 144/48
[2016-04-06 03:46] VITALS: BP 158/47
[2016-04-06 07:00] VITALS: BP 121/49
--- NOTE | 2016-04-06 07:37 | Progress Note ---
Subjective General Note Date: April 06, 2016 Admission Date: April 05, 2016 Hospital Day: 2 Status: Observation Advanced Directive: NO CODE Room: 211 Brief History: The patient is a 81-year-old white male with a significant past medical history of diabetes mellitus, hypertension, hyperlipidemia, chronic kidney disease, chronic sinusitis, who presented to [facility] emergency department secondary to complaints of cough, generalized malaise, and facial pain. [facility] ER evaluation was consistent with exacerbation of COPD, sinusitis, pneumonia rule out influenza. Secondary to the above, the patient was admitted by Magan Callahan M.D. for further evaluation and treatment. For other history present illness, past medical history, family history, social history, review of systems, and admission physical examination please see the patient's history and physical examination and ER visit note in the patient's medical record. Subjective: The patient states he is doing well today. Shortness of breath improved. Minimal cough. Afebrile. Patient requests: None Medications and Allergies Medications Current Medications Sig/Jude Start time Last Medication Dose Route Stop Time Status Admin Patient Own See Dose 2100 04/05 2100 AC 04/05 Medication Insts (1) SC 2048 Atorvastatin Calcium 40 MG QPM 04/05 1800 AC 04/05 PO 1808 Clarify Med Order See Dose ASDIRECTED 04/05 1700 AC Insts (2) PO Aspirin 81 MG DAILY 04/05 0900 AC 04/05 PO 0819 Azithromycin 500 MG DAILY 04/05 0900 AC 04/05 PO 04/07 1300 0819 Candesartan Cilexetil 2 MG BID 04/05 0900 AC 04/05 PO 2051 Ceftriaxone Sodium/ 50 ML DAILY 04/05 0900 AC 04/05 Dextrose IV 0923 Tiotropium [place] See Dose DAILY@0800 04/05 0800 AC 04/05 Insts (3) IN 0903 Insulin Human Lispro See Dose ACHS 04/05 0730 AC 04/05 Insts (4) SC 2048 Insulin Human Lispro 10 UNITS AC 04/05 0730 AC 04/05 SC 1734 Levalbuterol HCl 1.25 MG RTQ4H 04/05 0400 AC 04/06 IN 0325 Sodium Chloride 3 ML ASDIRECTED 04/05 0215 AC 04/06 IN 0325 Acetaminophen 650 MG Q6H PRN 04/05 0200 AC PO Sodium Chloride 1,000 ML ASDIRECTED 04/05 0200 AC 04/05 IV 1946 Dose Instructions: (1)Patient Own Medication: TOUJEO 64 UNITS (2)Clarify Med Order: PT MEDS IN PSB (OMNICELL) (3)Tiotropium [place]: 1 CAPSULE VIA HANDIHALER (4)Insulin Human Lispro: MEDIUM DOSE SLIDING SCALE Allergies Coded Allergies: Penicillins (04/05/16) Sulfa Antibiotics (04/05/16) Physical Exam Vital Signs / I&Os Vital Signs Date Time Temp Pulse Resp B/P Pulse O2 O2 Flow FiO2 Ox Delivery Rate 04/06 0700 97.5 79 19 121/49 95 Room Air 04/06 0346 98.4 93 18 158/47 97 Room Air 04/06 0123 Room Air 04/05 2257 97.7 86 18 144/48 98 Room Air 04/05 2030 Room Air 0.0 04/05 1912 97.9 82 18 130/68 94 Room Air 04/05 1545 Room Air 04/05 1438 97.7 88 20 125/61 92 Room Air 0.0 04/05 1016 97.5 92 22 164/125 94 Room Air 0.0 04/05 0925 Room Air 0.0 04/05 0743 98.1 74 16 115/41 94 Room Air 0.0 I&O 04/06 0000 04/05 1600 04/05 0800 Intake Total 1186 1862 0 Output Total 350 900 Balance 1186 1512 -900 General Appearance Alert, Oriented X3, Cooperative, No acute distress Lungs minimal basilar crackles, scattered rhonchi Cardiovascular Regular rate and rhythm, Normal S1 and S2 Abdomen Normal bowel sounds, Soft, No tenderness Extremities No cyanosis, No clubbing Neurological Cranial nerves intact, Strength 5/5 x4 ext's, No lateralizing signs Psych/Mental Status Mental status normal, Mood normal LAB Results Laboratory Tests 04/06 04/05 0510 1837 Chemistry Plasma Sodium (136 - 145 mmol/L) 138 Plasma Potassium (3.5 - 5.1 mmol/L) 4.1 Plasma Chloride (98 - 107 mmol/L) 104 CO2 (Enzymatic) (21 - 32 mmol/L) 20 BUN (7 - 18 mg/dL) 38 Creatinine (0.6 - 1.3 mg/dL) 1.8 Est GFR ( Amer) (mL/min) 47.12 Est GFR (Non-Af Amer) (mL/min) 38.88 Glucose (70 - 110 mg/dL) 359 Plasma Calcium (8.5 - 10.1 mg/dL) 7.6 Procalcitonin (0 - 0.5 ng/mL) <0.5 Hematology WBC (4.5 - 11.5 K/uL) 19.1 20.2 RBC (4.50 - 5.90 M/uL) 3.08 3.29 Hgb (13.5 - 17.5 gm/dL) 9.4 10.2 Hct (41.0 - 53.0 %) 28.6 30.8 MCV (80 - 100 fL) 93 94 MCH (26 - 34 pg) 31 31 RDW (11.6 - 14.8 %) 15.9 16.0 Neut % (Auto) (50 - 75 %) 78.9 66 Lymph % (Auto) (25 - 40 %) 3.3 3 [place] % (Auto) (3 - 14 %) 17.6 18 Eos % (Auto) (0 - 4 %) 0 0 Baso % (Auto) (0 - 2 %) 0.2 0 Band Neutrophils % (0 - 8 %) 13 Metamyelocytes % (0 - 1 %) 0 Myelocytes (0 - 1 %) 0 Other Cell Type 0 Plt Count, EDTA (150 - 400 K/uL) 129 134 Ovalocytes 1+ Amrit Cells 1+ PUBS MCHC (31 - 37 g/dL) 33 33 Microbiology Date/Time Procedure - Status Source Growth 04/05 0741 Influenza Screen - COMP NASALPHAR Assessment and Plan Problem List 1. Pneumonia Status Acute Onset Date Unknown Plan -Improved -Afebrile -Procalcitonin normal, persistent leukocytosis -Switch to oral medications -Probable discharge is stable in a.m. with improvement in leukocytosis 2. COPD exacerbation Plan -Much improved -Switched to DuoNeb -Monitor -No O2 requirement, stated shortness of breath much improved 3. Diabetes Plan -Persistent hyperglycemia -Continue present medical therapy increasing long-acting insulin -Continue insulin sliding scale -Outpatient follow-up with PCP/diabetic education -Check hemoglobin A1c 4. Leukocytosis Plan -Persistent leukocytosis but improved -Afebrile, Procalcitonin normal -Monitor 5. Hypertension Plan -Stable -BP 138/58 mmHg -Monitor Current status: Fair, improved Anticipated discharge date: Anticipated discharge in a.m. Anticipated discharge placement: Home Patient care time: Time spent in chart review, patient interview, physical exam, CPOE, and care documentation: 25 minutes Visit to patient today: 2 Complexity of care: Moderate E&M Codes Rounding: Inpt-Moderate/02410
[2016-04-06 10:26] VITALS: BP 132/58
[2016-04-06 15:25] VITALS: BP 132/43
[2016-04-06 18:49] VITALS: BP 148/59
[2016-04-06 22:36] VITALS: BP 162/69
[2016-04-07 02:46] VITALS: BP 123/45
[2016-04-07 07:04] VITALS: BP 142/77
[2016-04-07] MEDS ORDERED: CEFUROXIME AXE250 MG PO (09:59)
[2016-04-07] MEDS ORDERED: COMBIVENT RESPIMAT IN (09:59)
[2016-04-07] MEDS ORDERED: ZITHROMAX250 MG PO (09:59)
--- NOTE | 2016-04-07 10:02 | Provider's Discharge Care Plan ---
Problem, Goal, Plan Problem List 1. Pneumonia Goals: Improved health/wellness, Therapeutic intervention Instructions: Follow up as directed, Take meds as directed 2. COPD exacerbation Goals: Improve function, Improved health/wellness, Therapeutic intervention Instructions: Follow up as directed, Take meds as directed
--- NOTE | 2016-04-07 10:35 | DISCHARGE SUMMARY ---
ADMIT DATE: 04/05/2016 DISCHARGE DATE: 04/07/2016 ADMISSION DIAGNOSES: 1. Pneumonia and chronic obstructive pulmonary disease. 2. Type 2 diabetes. 3. Hypertension. DISCHARGE DIAGNOSES: 1. Pneumonia, improving. 2. Chronic obstructive pulmonary disease, improving. 3. Type 2 diabetes. 4. Hypertension. BRIEF HISTORY: This is a 81-year-old male with history of COPD, presenting to the hospital with complaints of cough and facial pain. The patient states he initially presented to the emergency department with a cough approximately 5 days prior to admission. It was similar to some illness that his had who had been having some issues at home feeling lousy and achy. He started having fevers to a maximum of 101.6 degrees Fahrenheit and he decided to go to the emergency department for further evaluation. HOSPITAL COURSE: The patient was diagnosed with pneumonia and started on antibiotics and treated for a chronic obstructive pulmonary disease exacerbation with steroids, nebulizer treatments and antibiotics. The patient's breathing improved over the ensuing days and he had been off oxygen for greater than 24 hours at the time of discharge. PHYSICAL EXAMINATION: VITAL SIGNS: At the time of discharge, blood pressure is 123-142/45-77. Pulse is 80-90, respiratory rate is 16, O2 saturation is 94%-95% on room air, T-max is 36.9 degrees Celsius. GENERAL: This is a well-appearing gentleman sitting in bed in no apparent distress. HEENT: Head is atraumatic, normocephalic. Trachea is midline. LUNGS: Mild end-expiratory wheezing diffusely, but with good air flow. HEART: S1, S2, regular rate and rhythm. No S3, S4, murmurs, gallops, or rubs. ABDOMEN: Soft, nontender, nondistended without hepatosplenomegaly or masses. Bowel sounds are active. There is no peripheral edema. DISCHARGE INSTRUCTIONS/MEDICATIONS: The patient was discharged home with instructions to follow up with his primary care provider within 3-5 days. Diet consistent carb diet. Activity: Up ad samina. Medications: 1. Azithromycin 250 mg p.o. daily x2 days. 2. Cefuroxime 500 mg p.o. b.i.d. x5 more days for a total of 7 days. 3. Combivent Respimat 1 puff inhaled q.i.d. 4. Aspirin 81 mg p.o. daily. 5. [place] 3 fatty acids 1 tab p.o. daily. 6. Metformin 500 mg p.o. daily. 7. Losartan 50 mg p.o. daily. 8. Atorvastatin 40 mg p.o. daily. 9. Toujeo 64 units subcutaneous at bedtime. 10. Insulin Apidra 11 units subcutaneous t.i.d. a.c. In closing, it was a pleasure being involved in the care of this patient. Please do not hesitate to contact me if you have any questions or concerns.
== END 2016-04-07 10:30 | disposition home or self-care (01) | DRG 190 ==
LOC: ED SRH 22:51 → ACUTE2 SRH 04-05 01:27 → TRANS SRH 04-05 01:27 → ACUTE2 SRH 04-05 01:55
PROVIDERS: ADMIT Emergency Medicine
DX: J44.0 Chronic obstructive pulmonary disease with (acute) lower respiratory infection (principal); J18.9 Pneumonia, unspecified organism; I12.9 Hypertensive chronic kidney disease with stage 1 through stage 4 chronic kidney disease, or unspecified chronic kidney disease; E11.65 Type 2 diabetes mellitus with hyperglycemia; E11.22 Type 2 diabetes mellitus with diabetic chronic kidney disease; N18.9 Chronic kidney disease, unspecified; E78.00 Pure hypercholesterolemia, unspecified; F17.210 Nicotine dependence, cigarettes, uncomplicated; J32.9 Chronic sinusitis, unspecified; Z79.4 Long term (current) use of insulin; Z83.3 Family history of diabetes mellitus; Z66 Do not resuscitate
CPT/HCPCS: 90047; 90065; 90074; 90098; 90100; 90616; 91286; 91295; 91320; 91400; 91643; 92031; 92610; 93004; 95059; 95061